=== PATIENT | female | born 1935 ===

== ENCOUNTER 2017-02-15 19:34 | Inpatient (IN) ==
[2017-02-16] MEDS ORDERED: POLYETHYL GLYCOL 3350 17gm PACKET PO PRN (00:34)
[2017-02-16] MEDS ORDERED: LUBIPROSTONE 8 MCG CAPSULE PO PRN (00:34)
[2017-02-16] MEDS ORDERED: LOPERAMIDE 2 MG CAPSULE PO PRN (00:34)
[2017-02-16] MEDS ORDERED: MAG-AL + SIM ORAL LIQUID 30ml PO PRN (00:34)
[2017-02-16] MEDS ORDERED: HALOPERIDOL 0.5 MG TABLET PO PRN (00:37)
[2017-02-16] MEDS ORDERED: HALOPERIDOL 5 MG/ML INJECTION IM PRN (00:37)
[2017-02-16] MEDS ORDERED: LORazepam 0.5 MG TABLET PO PRN (00:37)
[2017-02-16 02:15] VITALS: BMI 24.7
[2017-02-16] MEDS: BUMETANIDE 1 MG TABLET PO SCH (08:43)
[2017-02-16] MEDS: LEVOTHYROXINE 50 MCG TABLET PO SCH (08:43)
[2017-02-16] MEDS: CLOPIDOGREL 75 MG TABLET PO SCH (08:43)
[2017-02-16] MEDS: MAGNESIUM OXIDE 400 MG TABLET PO SCH ×5 (08:43→22:09)
[2017-02-16] MEDS: MIDODRINE 5 MG TABLET PO SCH ×2 (08:43→15:16)
[2017-02-16] MEDS: LETROZOLE 2.5 MG TABLET PO SCH (08:43)
[2017-02-16] MEDS: RANITIDINE 150 MG TABLET PO SCH ×2 (08:44→21:19)
[2017-02-16] MEDS: ASPIRIN *EC* 81 MG TABLET PO SCH (08:44)
[2017-02-16] MEDS: METFORMIN 500 MG TABLET PO SCH ×2 (08:44→17:42)
--- NOTE | 2017-02-16 09:42 | History & Physical Report ---
<NelsonTiffanie Oscar - Last Filed: 02/16/17 09:36> History of Present Illness Date: 02/16/17 Chief complaint: Agitation, Behavior changes "I am doing ok" HPI: Nury is a 72 yo WF who lives in [facility]. She is under the care of Dr. Kirit Burris in [place]. She was recently admitted at [facility] in December for PPM placement. Apparently, she experienced post-operative delirium, which was reportedly resolved upon dismissal. She became confused again on 02/11/17, and presented to [facility] in [place], where she was found to have a UTI. Despite significant pyuria, the urine culture was reportedly negative. Her confusion was attributed to UTI, and she was returned home with oral Cipro. She returned home with her daughter, and upon returning home, became agitated, cursing at family, left home and walked down the street. Family also reported that pt. was refusing meds, thought she was being poisoned. Daughter called Dr. Burris, who advised pt to return to the hospital. Daughter is unable to care for pt. due to ill spouse, and was unable to take her back home given elopement risk. Due to patient's fairly acute behavior changes, she met criteria for inpt. assessment and was admitted to [facility] for further eval and tx. Pt. is up in dining room. She is alert, pleasant. Reports feeling well, no pain. She can tell me she sees Dr. 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 Her legs are swollen- she reports "I am not sure what is going on. I don't think I've gained any weight." When asked if she has a history of HF, she states "Heavens, No!!" She is unable to provide other medical information. Chart is reviewed for collateral information. Family is not present during this exam. Review of Systems Review of systems: Limited due to confusion - Cardiovascular Vascular: Present: pedal edema - Respiratory Respiratory: Absent: cough, dyspnea - Gastrointestinal Gastrointestinal: Absent: abdominal pain - Musculoskeletal Musculoskeletal: Absent: back pain [facility] Patient Stated Medical History Dementia Yes Cardiac Arrhythmia Yes: Atrial fibrillation Coronary Artery Disease Yes Hypertension Yes Diabetes Mellitus Type 2 Yes Gastroesophageal Reflux Yes Disease Hx Urinary Tract Infection Yes: 02/11/17 Medical History Updates: Hypothyroidism. Orthostatic Hypotension. Hypokalemia Surgical History: PPM Family History: Unable to obtain due to mentation - Social History Smoking status: Never smoker Housing: house Household members: family Current occupational status: retired Medications Home Medications Medication Instructions Recorded Confirmed Type Aspirin *EC* [Ecotrin] 1 tab PO DAILY 02/15/17 02/16/17 History Bumetanide 2 mg PO DAILY 02/15/17 02/15/17 History Cholecalciferol [Vit. D-3] 1 tab PO DAILY 02/15/17 02/16/17 History Ciprofloxacin HCl [Cipro] 500 mg PO 02/15/17 02/15/17 History Clopidogrel Bisulfate [Clopidogrel] 75 mg PO DAILY 02/15/17 02/16/17 History Letrozole 2.5 mg PO DAILY 02/15/17 02/16/17 History Levothyroxine Sodium 50 mcg PO DAILY 02/15/17 02/16/17 History Loperamide HCl [Loperamide] 2 mg PO DAILY PRN 02/15/17 02/15/17 History Lubiprostone [Amitiza] 8 mcg PO PRN PRN 02/15/17 02/15/17 History Magnesium Oxide [Magnesium] 400 mg PO BID 02/15/17 02/16/17 History Metformin [Glucophage] 500 mg PO BIDWM 02/15/17 02/16/17 History Metoprolol Tartrate [Lopressor] 25 mg PO BIDWM 02/15/17 02/16/17 History Midodrine [Proamatine] 5 mg PO TID 02/15/17 02/16/17 History Oxycodone/APAP 5/325 [Percocet 1 tab PO HS 02/15/17 02/16/17 History 5/325] Potassium Chloride [Klor-Con 10] 10 meq PO BID 02/15/17 02/16/17 History raNITIdine HCl [Ranitidine HCl] 75 mg PO BID 02/15/17 02/16/17 History Mag-Al + Sim Oral Liq [Maalox Plus] 30 ml PO PRN PRN 02/16/17 02/16/17 History Polyethylene Glycol 3350 [Miralax] 17 gm PO PRN PRN 02/16/17 02/16/17 History Allergies Allergy/AdvReac Type Severity Reaction Status Date / Time No Known Allergies Allergy Verified 02/15/17 23:50 Exam Vital Signs: Temp Pulse Resp BP Pulse Ox 98 F 70 18 131/74 100 02/16/17 07:49 02/16/17 07:49 02/16/17 07:49 02/16/17 07:49 02/16/17 07:49 Height: 1.6 m Weight: 63.3 kg Body Mass Index: 24.7 Comments: EKG- 100% AV paced - Constitutional Present: no acute distress, well nourished, cooperative - Routine HEENT Exam Head: Present: normocephalic, atraumatic Eye: Present: EOMI, PERRL ENT: Present: mucous membranes moist - Routine Neck Exam Present: full ROM. Absent: JVD, carotid bruit, tenderness - Routine Chest/Breast/Axilla Exam Chest wall: Present: pacemaker - Routine Respiratory Exam Present: CTA bilaterally. Absent: accessory muscle use, dyspnea, decreased breath sounds, rales, respiratory distress, rhonchi, wheezes, crackles - Routine Cardiovascular Exam Present: RRR, S1, S2, no murmur. Absent: rubs - Routine Abdominal Exam Present: soft, normoactive bowel sounds, non distended, non tender. Absent: tenderness - Routine Extremities Exam Present: edema. Absent: cyanosis, clubbing, calf tenderness Comments: Bilateral 2+ LE edema, pitting - Routine Back/Spine/Pelvis Exam Back/Spine: Absent: muscle spasm - Routine Skin Exam Present: intact, dry, warm - Routine Neurological Exam Present: alert, moving all extremities - Routine Psychiatric Exam Present: cooperative. Absent: normal thought process, good insight, good judgment Results - Labs CBC & Chem 7: 02/16/17 08:07 02/16/17 08:07 Labs: AM labs WBC 4.7 HGB 10.3 HCT 31.5 PLT 206 INR 1.28 Na 137 K 3.3 Ch 107 BUN 12 SC 0.91 Glu 140 Ca 7.8 UDS negative. LFTs normal Assessment and Plan (1) Cognitive and behavioral changes Current visit: Yes Status: Acute (2) UTI (urinary tract infection), bacterial Current visit: Yes Status: Acute (3) HTN (hypertension) Current visit: Yes Status: Chronic (4) CAD (coronary artery disease) Current visit: Yes Status: Chronic (5) Chronic edema Current visit: Yes Status: Chronic (6) Hypokalemia Current visit: Yes Status: Acute (7) DM2 (diabetes mellitus, type 2) Current visit: Yes Status: Chronic (8) Hypothyroid Current visit: Yes Status: Chronic (9) Atrial fibrillation Current visit: Yes Status: Chronic 02/16/17 09:54 s/p PPM December 2016- [facility]. Request records for Echo, Cardiac records (None at [facility]) (10) Leukopenia Current visit: Yes Status: Acute (11) Normocytic normochromic anemia Current visit: Yes Status: Chronic (12) IBS (irritable bowel syndrome) Current visit: Yes Status: Acute DVT Prophylaxis: other (N/a) GI Prophylaxis: Rantidine Resuscitation Status: Full Code Assessment and Plan: 02/16/17- PCP: Dr. Burris *Cognitive/Behavioral Changes- Per attending. Will stop Cipro, as this can worsen delirium in the elderly. Ok for unit activities. Recent anesthesia for PPM. *UTI- Significant pyuria on recent UA. Recheck UA now. Stop Cipro and reassess once urine is back. *HTN- Continue metoprolol, Bumex. She is on Midodrine- suspect some history of orthostasis. Monitor BP. *Peripheral edema- Given Bumex dosing, suspect HF. Try and get echo from [facility]. *Hypokalemia- Repeat labs now. May need to increase KCL dosing. *Leukopenia- She is on Femara. No hx of cancer is on record. Will need to clarify with family. *Anemia- normocytic. Assess B12, Folate. *DM2-Continue metformin. A1c is OK. Monitor accuchecks. *Hypothyroid- TSH high normal. We could potentially increase dose a bit. Monitor progress for now. *Atrial Fib- s/p PPM Rate control. No anticoagulation due to fall risk. *Full Code Thank you for the consult. Will follow with you. Sepsis Assessment - Evaluation Sepsis screening result: No Definite Risk Hospital Course Summary Disclaimer: The visit summary below is not to be considered part of the above Progress Note. Hospital Course: 02/16/17 10:03 *Cognitive/Behavioral Changes- Per attending. Will stop Cipro, as this can worsen delirium in the elderly. Ok for unit activities. Recent anesthesia for PPM. *UTI- Significant pyuria on recent UA. Recheck UA now. Stop Cipro and reassess once urine is back. *HTN- Continue metoprolol, Bumex. She is on Midodrine- suspect some history of orthostasis. Monitor BP. *Peripheral edema- Given Bumex dosing, suspect HF. Try and get echo from [facility]. *Hypokalemia- Repeat labs now. May need to increase KCL dosing. *Leukopenia- She is on Femara. No hx of cancer is on record. Will need to clarify with family. *Anemia- normocytic. Assess B12, Folate. *DM2-Continue metformin. A1c is OK. Monitor accuchecks. *Hypothyroid- TSH high normal. We could potentially increase dose a bit. Monitor progress for now. *Atrial Fib- s/p PPM Rate control. No anticoagulation due to fall risk. *Full Code <Artur Wade - Last Filed: 02/16/17 19:04> History of Present Illness Date: 02/16/17 [facility] Patient Stated Medical History Dementia Yes Cardiac Arrhythmia Yes: Atrial fibrillation Coronary Artery Disease Yes Hypertension Yes Diabetes Mellitus Type 2 Yes Gastroesophageal Reflux Yes Disease Hx Urinary Tract Infection Yes: 02/11/17 Exam Vital Signs: Temp Pulse Resp BP Pulse Ox 97.2 F 68 18 141/73 H 96 02/16/17 15:00 02/16/17 15:00 02/16/17 15:00 02/16/17 15:00 02/16/17 15:00 Height: 5 ft 3 in Weight: 63.3 kg Results - Labs CBC & Chem 7: 02/16/17 08:07 02/16/17 10:52 Assessment and Plan (1) Cognitive and behavioral changes Current visit: Yes Status: Acute (2) UTI (urinary tract infection), bacterial Current visit: Yes Status: Acute (3) HTN (hypertension) Current visit: Yes Status: Chronic (4) CAD (coronary artery disease) Current visit: Yes Status: Chronic (5) Chronic edema Current visit: Yes Status: Chronic (6) Hypokalemia Current visit: Yes Status: Acute (7) DM2 (diabetes mellitus, type 2) Current visit: Yes Status: Chronic (8) Hypothyroid Current visit: Yes Status: Chronic (9) Atrial fibrillation Current visit: Yes Status: Chronic (10) Leukopenia Current visit: Yes Status: Acute (11) Normocytic normochromic anemia Current visit: Yes Status: Chronic (12) IBS (irritable bowel syndrome) Current visit: Yes Status: Acute Assessment and Plan: Pt was seen and examined at 18:30. She states she is feeling well and appears to be puzzled by lower extremity edema. She has no complaints. VSS [place]/AT [place] Chest clear Irregular Abd -soft Ext - minimally pititng edema Gait - not tested. Grossly non focal. Assesment - This pt has been admitted with cognitive decline of recent onset. We need to obtain a recent brain CT or do it here. 1) ? of UTI - Cipro held - UA will be done again. 2) HTN - stable continue current meds. 3) Peripheral edema/HTN/Low K - Could be due to Midodrine - will hold and observe orthostasis. - Low K will improve with correction of Mg. 4) CHF ? pt appears to be very comfortable. - Atrial fibrillation with controlled rate. - No Anticoagulation due to fall risk. 5) ? H.O breast cancer ? On Femara. 6) Anemia - Await B12 levels. 7) Type II DM - Continue Metformin. 8) Hypothyoridism - Check FT4, T3. Hospital Course Summary Disclaimer: The visit summary below is not to be considered part of the above Progress Note.
[2017-02-16] MEDS ORDERED: CIPROFLOXACIN 500 MG TABLET PO SCH (10:00)
[2017-02-16] MEDS: CEFPODOXIME 200mg TABLET PO SCH ×2 (12:08→17:43)
--- NOTE | 2017-02-16 12:54 | 24 Hour Neuropsychiatic Eval ---
Date of Admission: 02/15/17 23:25 Chief complaint: "I retired" History of Present Illness: 81 y/o CF sent from [place] for increasing confusion and self care failure. Pt reportedly has a hx of dementia and recently had a UTI. THis was treated but her confusion persisted. Recently she has been refusing meds at home and has been wandering away from the home. Due to these issues her daughter did not feel she could keep her safe. At the hospital in [place] the staff reported the pt was confused and paranoid at times. On face to face the pt is pleasant but confused. She knows she is in the hospital but is not sure why. SHe is only oriented to self and believes she is in [place] and it is September. She denies any pain and voices no concerns at this time. [facility] Patient Stated Medical History Dementia Yes Cardiac Arrhythmia Yes: Atrial fibrillation Coronary Artery Disease Yes Hypertension Yes Diabetes Mellitus Type 2 Yes Gastroesophageal Reflux Yes Disease Hx Urinary Tract Infection Yes: 02/11/17 Medical History Updates: Hypothyroidism. Orthostatic Hypotension. Hypokalemia Surgical History: PPM - Social History Smoking status: Never smoker Review of Systems ROS unobtainable: due to mental status - Cardiovascular Vascular: Present: pedal edema - Respiratory Respiratory: Absent: cough, dyspnea - Gastrointestinal Gastrointestinal: Absent: abdominal pain - Musculoskeletal Musculoskeletal: Absent: back pain Mental Status Exam Vitals: Last Vital Signs Temp 98 F 02/16/17 07:49 Pulse 70 02/16/17 07:49 Resp 18 02/16/17 07:49 BP 131/74 02/16/17 07:49 Pulse Ox 100 02/16/17 07:49 Height: 1.6 m Weight: 63.3 kg - Mental Status Exam Muscle Strength/Tone: Normal Dressing: Casual Grooming: Good Attitude: Cooperative Motor Activity: Retardation Eye Contact: Fair Speech: Slowed Volume: Soft Rhythm: Appropriate Rhythm Orientation: Oriented to person Mood: Neutral Affect: Anxious Rate of Thoughts: Delayed Thought Organization: [place] Associations: Flight of Ideas Abstract Reasoning: Poor abstract reasoning Thought Content: Delusions Perception/Psychotic: Hx psychosis, not current Language: Naming Impaired Memory: Poor-immediate Suicidal Ideation: None Homicidal Ideation: None Insight: Poor Judgement: Poor - Laboratory Result Diagrams: 02/16/17 08:07 02/16/17 10:52 Laboratory Results - last 24 hr 02/16/17 02/16/17 02/16/17 05:51 08:07 08:07 WBC 11.3 H RBC 3.62 L Hgb 11.3 L Hct 34.9 L MCV 96.4 MCH 31.2 MCHC 32.4 RDW Std Deviation 45.2 Plt Count 356 MPV 10.6 Immature Gran % (Auto) Not performed Neut % (Auto) Not performed Lymph % (Auto) Not performed Frio % (Auto) Not performed Eos % (Auto) Not performed Baso % (Auto) Not performed Neut # Not performed Lymph # Not performed Frio # Not performed Baso # Not performed Abs Immat Gran (auto) Not performed Neutrophils % (Manual) 49.0 Band Neutrophils % 6.0 Lymphocytes % (Manual) 38.0 Monocytes % (Manual) 5.0 Metamyelocytes % 2.0 H Neutrophils # (Manual) 5.5 Band Neutrophils # 0.7 Lymphocytes # (Manual) 4.3 Monocytes # (Manual) 0.6 Metamyelocytes # 0.2 RBC Morph Comment Normal Turbidity Sodium Potassium Chloride Carbon Dioxide Anion Gap BUN Creatinine GFR Calculation BUN/Creatinine Ratio Glucose Glucometer 111 Hemoglobin A1c 6.6 Calculated Osmolality Calcium Magnesium Total Bilirubin Icterus Index AST ALT Alkaline Phosphatase Total Protein Albumin Globulin Albumin/Globulin Ratio Prealbumin 15.7 L TSH 4.60 Specimen Hemolysis 02/16/17 10:52 WBC RBC Hgb Hct MCV MCH MCHC RDW Std Deviation Plt Count MPV Immature Gran % (Auto) Neut % (Auto) Lymph % (Auto) Frio % (Auto) Eos % (Auto) Baso % (Auto) Neut # Lymph # Frio # Baso # Abs Immat Gran (auto) Neutrophils % (Manual) Band Neutrophils % Lymphocytes % (Manual) Monocytes % (Manual) Metamyelocytes % Neutrophils # (Manual) Band Neutrophils # Lymphocytes # (Manual) Monocytes # (Manual) Metamyelocytes # RBC Morph Comment Turbidity < 20 Sodium 145 H Potassium 4.0 Chloride 108 H Carbon Dioxide 23 Anion Gap 14 BUN 10.0 Creatinine 1.1 GFR Calculation 65 BUN/Creatinine Ratio 9 Glucose 117 H Glucometer Hemoglobin A1c Calculated Osmolality 279 Calcium 9.3 Magnesium 1.3 L Total Bilirubin 0.50 Icterus Index < 2 AST 19 ALT 33 Alkaline Phosphatase 71 Total Protein 6.3 Albumin 4.0 Globulin 2.3 L Albumin/Globulin Ratio 1.7 Prealbumin TSH Specimen Hemolysis < 15 Assessment and Plan (1) Delirium Problem details: Due to UTI Current visit: Yes Status: Acute (2) Major neurocognitive disorder Problem details: with behavioral disturbance Current visit: Yes Status: Acute Will restart home meds. Medical team to follow
[2017-02-16] MEDS ORDERED: PHENAZOPYRIDINE 95 MG TABLET PO PRN (14:28)
[2017-02-16] MEDS ORDERED: LORazepam INTENSOL 1mg/0.5ml ORAL LIQUID PO PRN ×2 (16:53→16:57)
[2017-02-16] MEDS ORDERED: MAGNESIUM SULFATE IV ONE (18:02)
[2017-02-16] MEDS ORDERED: NS IV ONE (18:02)
[2017-02-16] MEDS: Oxycodone/Acetaminophen 5/325 1 TAB PO SCH (21:28)
[2017-02-17] MEDS: LEVOTHYROXINE 50 MCG TABLET PO SCH (05:53)
--- NOTE | 2017-02-17 08:43 | CT Scan Report ---
Indication: Acute mental status change PROCEDURE: CT head/brain wo con: Encounter: Initial Comparison: None Technique: Axial CT images through the head were performed without contrast. Iterative Reconstruction dose reducing technique was utilized. FINDINGS: Moderate generalized atrophy. Chronic appearing bilateral cerebellar infarcts. The ventricles are of normal size, shape, and contour for the patient's age. There are scattered areas of low attenuation in the white matter which most likely represent changes from chronic microvascular ischemia. The brainstem, cerebellum, and cerebral hemispheres otherwise have a normal morphology and CT attenuation. There is no evidence of midline displacement. No hemorrhage, signs of acute territorial stroke, mass effect, mass lesions, or edema is evident. The visualized portions of the skull base, midface, and calvarium demonstrate no abnormality. The paranasal sinuses are well aerated and free of significant disease. The tympanic and mastoid cavities appear normal. IMPRESSION: No acute intracranial abnormality or hemorrhage. .
--- NOTE | 2017-02-17 08:44 | XRay Report ---
INDICATION: Acute mental status change PROCEDURE: CHEST 2-VIEWS UPRIGHT (PA & LAT) Encounter: Initial COMPARISON: None FINDINGS: The lungs are clear without evidence of focal abnormal airspace opacity. Slight blunting of the right costophrenic angle is felt to be most likely due to pleural thickening rather than a trace effusion. Cardiac pacemaker is present. Intracardiac valve or baffle. Cholecystectomy clips. The heart size, mediastinal contours and pulmonary vascularity are within normal limits. There is no significant skeletal abnormality. IMPRESSION: No acute cardiopulmonary disease. .
[2017-02-17] MEDS: MAGNESIUM OXIDE 400 MG TABLET PO SCH ×3 (09:16→20:03)
[2017-02-17] MEDS: LETROZOLE 2.5 MG TABLET PO SCH (09:16)
[2017-02-17] MEDS: ASPIRIN *EC* 81 MG TABLET PO SCH (09:16)
[2017-02-17] MEDS: BUMETANIDE 1 MG TABLET PO SCH (09:16)
[2017-02-17] MEDS: RANITIDINE 150 MG TABLET PO SCH ×2 (09:17→20:03)
[2017-02-17] MEDS: CLOPIDOGREL 75 MG TABLET PO SCH (09:17)
--- NOTE | 2017-02-17 09:27 | Progress Note ---
Subjective: "Bev" (her nickname her whole life) was doing well this morning. Her only comment was her leg swelling, but she can't remember how long it's been present. She denies any hx of CHF or heart problems (though records indicate otherwise); denies SOA at rest or with exertion; no PND; no chest pain; no diaphoresis or dizziness. She denies abdominal pain or GI complaints. She talks fondly of her dog, "Joy" and is looking forward to when her daughter brings Joy to visit this morning. Objective Vital signs: Temp Pulse Resp BP Pulse Ox 97.7 F 69 16 106/57 98 02/17/17 07:00 02/17/17 07:00 02/17/17 07:00 02/17/17 07:00 02/16/17 23:00 Body Mass Index: 24.7 - Constitutional Present: no acute distress, well nourished, cooperative - Routine HEENT Exam ENT: Present: oropharynx clear. Absent: dentition normal - Routine Respiratory Exam Present: CTA bilaterally - Routine Cardiovascular Exam Present: RRR, S1, S2 - Routine Abdominal Exam Present: soft, normoactive bowel sounds, non distended, non tender - Routine Extremities Exam Present: edema (2+ b/l), normal capillary refill - Routine Skin Exam Present: intact, dry, warm - Routine Neurological Exam Present: alert - Routine Psychiatric Exam Present: normal affect, normal thought process Results - Labs CBC & Chem 7: 02/17/17 06:04 02/17/17 06:04 Assessment and Plan (1) Cognitive and behavioral changes Current visit: Yes Status: Acute (2) UTI (urinary tract infection), bacterial Current visit: Yes Status: Acute (3) HTN (hypertension) Current visit: Yes Status: Chronic (4) CAD (coronary artery disease) Current visit: Yes Status: Chronic (5) Chronic edema Current visit: Yes Status: Chronic (6) Hypokalemia Current visit: Yes Status: Acute (7) DM2 (diabetes mellitus, type 2) Current visit: Yes Status: Chronic (8) Hypothyroid Current visit: Yes Status: Chronic (9) Atrial fibrillation Current visit: Yes Status: Chronic 02/16/17 09:54 s/p PPM December 2016- [facility]. Request records for Echo, Cardiac records (None at [facility]) (10) Leukopenia Current visit: Yes Status: Acute (11) Normocytic normochromic anemia Current visit: Yes Status: Chronic (12) IBS (irritable bowel syndrome) Current visit: Yes Status: Acute Assessment and Plan: Hypomagnesemia -improving; up to 1.5 -recheck in am -K stable at 3.9 UTI -r/o; UA neg. -Cipro dc'd DM2 -well controlled and normal A1c -Metformin dc'd -continue to monitor BG to assess trends since metformin was dc'd Suspect CHF -records being requested from [facility] -continue Bumex & metoprolol -EKG reviewed - paced rhythm -elevate legs when at rest ?Orthostasis -midodrine on hold -monitor orthostatics BID Psych -head CT shows moderate atrophy and chronic b/l cerebellar infarcts -observe for gait instability -RPR, lippid panel, T3, T4 pending -B12 523 Sepsis Assessment - Evaluation Sepsis screening result: No Definite Risk Hospital Course Summary Disclaimer: The visit summary below is not to be considered part of the above Progress Note. Hospital Course: 02/16/17 10:03 *Cognitive/Behavioral Changes- Per attending. Will stop Cipro, as this can worsen delirium in the elderly. Ok for unit activities. Recent anesthesia for PPM. *UTI- Significant pyuria on recent UA. Recheck UA now. Stop Cipro and reassess once urine is back. *HTN- Continue metoprolol, Bumex. She is on Midodrine- suspect some history of orthostasis. Monitor BP. *Peripheral edema- Given Bumex dosing, suspect HF. Try and get echo from [facility]. *Hypokalemia- Repeat labs now. May need to increase KCL dosing. *Leukopenia- She is on Femara. No hx of cancer is on record. Will need to clarify with family. *Anemia- normocytic. Assess B12, Folate. *DM2-Continue metformin. A1c is OK. Monitor accuchecks. *Hypothyroid- TSH high normal. We could potentially increase dose a bit. Monitor progress for now. *Atrial Fib- s/p PPM Rate control. No anticoagulation due to fall risk. *Full Code 02/17/17 09:41 Hypomagnesemia -improving; up to 1.5 -recheck in am -K stable at 3.9 UTI -r/o; UA neg. -Cipro dc'd DM2 -well controlled and normal A1c -Metformin dc'd -continue to monitor BG to assess trends since metformin was dc'd Suspect CHF -records being requested from [facility] -continue Bumex & metoprolol -EKG reviewed - paced rhythm -elevate legs when at rest ?Orthostasis -midodrine on hold -monitor orthostatics BID Psych -head CT shows moderate atrophy and chronic b/l cerebellar infarcts -observe for gait instability -RPR, lippid panel, T3, T4 pending -B12 523
--- NOTE | 2017-02-17 10:59 | Neuropsych Progress Note ---
[facility] Subjective Date: 02/17/17 - Sujective/Severity of Illness Medications: Al Hydroxide/Mg Hydroxide (Maalox Plus) 30 ml PO PRN PRN PRN Reason: Indigestion Aspirin (Ecotrin) 81 mg PO DAILY [facility] Last Admin: 02/17/17 09:16 Dose: 81 mg Bumetanide (Bumex) 2 mg PO DAILY [facility] Last Admin: 02/17/17 09:16 Dose: 2 mg Cholecalciferol (Vit. D-3) 1,000 unit PO DAILY [facility] Last Admin: 02/17/17 09:18 Dose: 1,000 unit Clopidogrel Bisulfate (Plavix) 75 mg PO DAILY [facility] Last Admin: 02/17/17 09:17 Dose: 75 mg Haloperidol (Haldol) 0.5 mg PO Q6H PRN PRN Reason: Extreme agitation Haloperidol Lactate (Haldol) 0.5 mg IM Q6H PRN PRN Reason: Extreme agitation Letrozole (Femara) 2.5 mg PO DAILY [facility] Last Admin: 02/17/17 09:16 Dose: 2.5 mg Levothyroxine Sodium (Synthroid) 50 mcg PO ACB [facility] Last Admin: 02/17/17 05:53 Dose: 50 mcg Loperamide HCl (Imodium) 2 mg PO DAILY PRN PRN Reason: Unspecified Lorazepam (Ativan Inj) 0.5 mg IM Q6H PRN PRN Reason: Extreme agitation Lorazepam (Ativan) 0.5 mg PO Q6H PRN PRN Reason: Extreme agitation Lorazepam (Ativan Intensol) 0.5 mg PO Q6H PRN Last Admin: 02/16/17 17:13 Dose: 0.5 mg Lubiprostone (Amitiza) 8 mcg PO PRN PRN PRN Reason: Unspecified Magnesium Oxide (Magox) 400 mg PO TID [facility] Last Admin: 02/17/17 09:16 Dose: 400 mg Metformin HCl (Glucophage) 500 mg PO BIDWM [facility] Last Admin: 02/16/17 17:42 Dose: 500 mg Metoprolol Tartrate (Lopressor) 25 mg PO BIDWM [facility] Last Admin: 02/17/17 09:16 Dose: 25 mg Oxycodone/Acetaminophen (Percocet 5/325) 1 tab PO [facility] Last Admin: 02/16/17 21:28 Dose: 1 tab Polyethylene Glycol (Miralax) 17 gm PO PRN PRN PRN Reason: Constipation Potassium Chloride (K-Dur) 10 meq PO BIDWM [facility] Last Admin: 02/17/17 09:15 Dose: 10 meq Ranitidine HCl (Zantac) 75 mg PO BID [facility] Last Admin: 02/17/17 09:17 Dose: 75 mg Subjective: Patient is a 81-year-old CF who presented from home with increase confusion and agitation. She was said to have had a UTI which was treated with Ciprofloxacin. Since admission the later has been help and a repeat UA on admission showed 2-3 WBC and + 1 leukocyte esterase . Patient was seen to be alert and oriented to place and person, but nor to time. She would like to go back home as soon as possible to be with her dog. She describes her mood as "okay" and denies any suicide or homicide ideation. Start Time: 09:10 Stop Time: 09:30 Mental Status Exam Vitals: Last Vital Signs Temp 97.7 F 02/17/17 07:00 Pulse 69 02/17/17 07:00 Resp 16 02/17/17 07:00 BP 106/57 02/17/17 07:00 Pulse Ox 98 02/16/17 23:00 Height: 1.6 m Weight: 63.3 kg - Mental Status Exam Muscle Strength/Tone: Normal Dressing: Casual Grooming: Good Attitude: Cooperative Motor Activity: Retardation Eye Contact: Good Speech: Normal Volume: Soft Rhythm: Appropriate Rhythm, Perseveration (about going home) Orientation: Disoriented to time, Oriented to person, Oriented to place (knows that she is in a "health place") Mood: Other ("okay") Affect: Anxious Rate of Thoughts: Delayed Thought Organization: [place] Associations: Illogical Abstract Reasoning: Poor abstract reasoning Thought Content: Delusions Perception/Psychotic: Hx psychosis, 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 Language: Naming Impaired Memory: Poor-immediate Suicidal Ideation: None Homicidal Ideation: None Insight: Poor Judgement: Poor - Laboratory Result Diagrams: 02/17/17 06:04 02/17/17 06:04 Laboratory Results - last 24 hr 02/16/17 02/16/17 02/16/17 08:07 10:52 13:20 WBC RBC Hgb Hct MCV MCH MCHC RDW Std Deviation Plt Count MPV Immature Gran % (Auto) Neut % (Auto) Lymph % (Auto) Angelina % (Auto) Eos % (Auto) Baso % (Auto) Neut # Lymph # Angelina # Eos # Baso # Abs Immat Gran (auto) Turbidity < 20 Sodium 145 H Potassium 4.0 Chloride 108 H Carbon Dioxide 23 Anion Gap 14 BUN 10.0 Creatinine 1.1 GFR Calculation 65 BUN/Creatinine Ratio 9 Glucose 117 H Glucometer Calculated Osmolality 279 Calcium 9.3 Magnesium 1.3 L Total Bilirubin 0.50 Icterus Index < 2 AST 19 ALT 33 Alkaline Phosphatase 71 Total Protein 6.3 Albumin 4.0 Globulin 2.3 L Albumin/Globulin Ratio 1.7 Vitamin B12 523 Folate 11.8 Specimen Hemolysis < 15 Ur Collection Type Not provided Urine Color Yellow Urine Clarity Clear Urine pH 5.0 Ur Specific [place] <=1.005 L Urine Protein Negative Urine Glucose (UA) Negative Urine Ketones Negative Urine Occult Blood Negative Urine Nitrate Negative Urine Bilirubin Negative Urine Urobilinogen 0.2 Ur Leukocyte Esterase 1+ A Urine RBC 0-1 Urine WBC 3-5 Ur Squamous Epith Cells 0-5 Urine Bacteria Trace H Urine Mucus Present Ur Culture Indicated? Cult not indicated 02/16/17 02/17/17 02/17/17 20:55 05:45 06:04 WBC 8.9 RBC 3.71 L Hgb 11.5 L Hct 35.5 L MCV 95.7 MCH 31.0 MCHC 32.4 RDW Std Deviation 45.1 Plt Count 361 MPV 10.1 Immature Gran % (Auto) 2.4 H Neut % (Auto) 47.6 Lymph % (Auto) 38.3 Angelina % (Auto) 9.9 H Eos % (Auto) 1.5 Baso % (Auto) 0.3 Neut # 4.3 Lymph # 3.4 Angelina # 0.9 H Eos # 0.1 Baso # 0.0 Abs Immat Gran (auto) 0.21 H Turbidity Sodium Potassium Chloride Carbon Dioxide Anion Gap BUN Creatinine GFR Calculation BUN/Creatinine Ratio Glucose Glucometer 151 101 Calculated Osmolality Calcium Magnesium Total Bilirubin Icterus Index AST ALT Alkaline Phosphatase Total Protein Albumin Globulin Albumin/Globulin Ratio Vitamin B12 Folate Specimen Hemolysis Ur Collection Type Urine Color Urine Clarity Urine pH Ur Specific [place] Urine Protein Urine Glucose (UA) Urine Ketones Urine Occult Blood Urine Nitrate Urine Bilirubin Urine Urobilinogen Ur Leukocyte Esterase Urine RBC Urine WBC Ur Squamous Epith Cells Urine Bacteria Urine Mucus Ur Culture Indicated? 02/17/17 06:04 WBC RBC Hgb Hct MCV MCH MCHC RDW Std Deviation Plt Count MPV Immature Gran % (Auto) Neut % (Auto) Lymph % (Auto) Angelina % (Auto) Eos % (Auto) Baso % (Auto) Neut # Lymph # Angelina # Eos # Baso # Abs Immat Gran (auto) Turbidity < 20 Sodium 144 Potassium 3.9 Chloride 103 Carbon Dioxide 28 Anion Gap 13 BUN 15.0 D Creatinine 1.2 GFR Calculation 58 BUN/Creatinine Ratio 13 Glucose 91 Glucometer Calculated Osmolality 278 Calcium 9.4 Magnesium 1.5 L Total Bilirubin 0.50 Icterus Index < 2 AST 16 L ALT 27 Alkaline Phosphatase 68 Total Protein 6.3 Albumin 3.9 Globulin 2.4 Albumin/Globulin Ratio 1.6 Vitamin B12 Folate Specimen Hemolysis < 15 Ur Collection Type Urine Color Urine Clarity Urine pH Ur Specific [place] Urine Protein Urine Glucose (UA) Urine Ketones Urine Occult Blood Urine Nitrate Urine Bilirubin Urine Urobilinogen Ur Leukocyte Esterase Urine RBC Urine WBC Ur Squamous Epith Cells Urine Bacteria Urine Mucus Ur Culture Indicated? Assessment and Plan (1) Major neurocognitive disorder Problem details: with behavioral disturbance Current visit: Yes Status: Acute (2) Delirium Problem details: Due to UTI Current visit: Yes Status: Acute (3) UTI (urinary tract infection), bacterial Current visit: Yes Status: Acute (4) Atrial fibrillation Current visit: Yes Status: Chronic (5) CAD (coronary artery disease) Current visit: Yes Status: Chronic (6) DM2 (diabetes mellitus, type 2) Current visit: Yes Status: Chronic (7) HTN (hypertension) Current visit: Yes Status: Chronic (8) Hypothyroid Current visit: Yes Status: Chronic Cont current management and observe patient in the unit. Hospital Course Summary Disclaimer: The visit summary below is not to be considered part of the above Progress Note. Hospital Course: 02/16/17 10:03 *Cognitive/Behavioral Changes- Per attending. Will stop Cipro, as this can worsen delirium in the elderly. Ok for unit activities. Recent anesthesia for PPM. *UTI- Significant pyuria on recent UA. Recheck UA now. Stop Cipro and reassess once urine is back. *HTN- Continue metoprolol, Bumex. She is on Midodrine- suspect some history of orthostasis. Monitor BP. *Peripheral edema- Given Bumex dosing, suspect HF. Try and get echo from [facility]. *Hypokalemia- Repeat labs now. May need to increase KCL dosing. *Leukopenia- She is on Femara. No hx of cancer is on record. Will need to clarify with family. *Anemia- normocytic. Assess B12, Folate. *DM2-Continue metformin. A1c is OK. Monitor accuchecks. *Hypothyroid- TSH high normal. We could potentially increase dose a bit. Monitor progress for now. *Atrial Fib- s/p PPM Rate control. No anticoagulation due to fall risk. *Full Code 02/17/17 09:41 Hypomagnesemia -improving; up to 1.5 -recheck in am -K stable at 3.9 UTI -r/o; UA neg. -Cipro dc'd DM2 -well controlled and normal A1c -Metformin dc'd -continue to monitor BG to assess trends since metformin was dc'd Suspect CHF -records being requested from [facility] -continue Bumex & metoprolol -EKG reviewed - paced rhythm -elevate legs when at rest ?Orthostasis -midodrine on hold -monitor orthostatics BID Psych -head CT shows moderate atrophy and chronic b/l cerebellar infarcts -observe for gait instability -RPR, lippid panel, T3, T4 pending -B12 523
[2017-02-17] MEDS: Oxycodone/Acetaminophen 5/325 1 TAB PO SCH ×2 (20:04→22:02)
[2017-02-18] MEDS: LEVOTHYROXINE 50 MCG TABLET PO SCH (06:34)
[2017-02-18] MEDS: RANITIDINE 150 MG TABLET PO SCH ×2 (09:49→20:35)
[2017-02-18] MEDS: ASPIRIN *EC* 81 MG TABLET PO SCH (09:50)
[2017-02-18] MEDS: LETROZOLE 2.5 MG TABLET PO SCH (09:50)
[2017-02-18] MEDS: MAGNESIUM OXIDE 400 MG TABLET PO SCH (09:50)
[2017-02-18] MEDS: CLOPIDOGREL 75 MG TABLET PO SCH (09:50)
[2017-02-18] MEDS: BUMETANIDE 1 MG TABLET PO SCH (09:50)
[2017-02-18] MEDS: MIDODRINE 5 MG TABLET PO SCH ×3 (11:50→20:35)
[2017-02-18] MEDS: INSULIN ASPART 100unit/ml INJECTION SQ PRN (12:22)
[2017-02-18] MEDS: METFORMIN 500 MG TABLET PO SCH (16:49)
--- NOTE | 2017-02-18 18:29 | Neuropsych Progress Note ---
[facility] Subjective Date: 02/18/17 - Sujective/Severity of Illness Medications: Al Hydroxide/Mg Hydroxide (Maalox Plus) 30 ml PO PRN PRN PRN Reason: Indigestion Aspirin (Ecotrin) 81 mg PO DAILY [facility] Last Admin: 02/18/17 09:50 Dose: 81 mg Bumetanide (Bumex) 2 mg PO DAILY [facility] Last Admin: 02/18/17 09:50 Dose: Not Given Cholecalciferol (Vit. D-3) 1,000 unit PO DAILY [facility] Last Admin: 02/18/17 09:50 Dose: 1,000 unit Clopidogrel Bisulfate (Plavix) 75 mg PO DAILY [facility] Last Admin: 02/18/17 09:50 Dose: 75 mg Haloperidol (Haldol) 0.5 mg PO Q6H PRN PRN Reason: Extreme agitation Haloperidol Lactate (Haldol) 0.5 mg IM Q6H PRN PRN Reason: Extreme agitation Insulin Aspart (Novolog) 0 unit SQ SS PRN; Protocol PRN Reason: Hyperglycemia Last Admin: 02/18/17 12:22 Dose: 2 unit Letrozole (Femara) 2.5 mg PO DAILY [facility] Last Admin: 02/18/17 09:50 Dose: 2.5 mg Levothyroxine Sodium (Synthroid) 50 mcg PO ACB [facility] Last Admin: 02/18/17 06:34 Dose: 50 mcg Loperamide HCl (Imodium) 2 mg PO DAILY PRN PRN Reason: DIARRHEA, LOOSE STOOLS Lorazepam (Ativan Inj) 0.5 mg IM Q6H PRN PRN Reason: Extreme agitation Lorazepam (Ativan) 0.5 mg PO Q6H PRN PRN Reason: Extreme agitation Lorazepam (Ativan Intensol) 0.5 mg PO Q6H PRN Last Admin: 02/16/17 17:13 Dose: 0.5 mg Lubiprostone (Amitiza) 8 mcg PO PRN PRN PRN Reason: FOR IBS with CONSTIPATION Metformin HCl (Glucophage) 500 mg PO BIDWM [facility] Last Admin: 02/18/17 16:49 Dose: 500 mg Metoprolol Tartrate (Lopressor) 25 mg PO BIDWM [facility] Last Admin: 02/18/17 16:50 Dose: Not Given Midodrine (Proamatine) 5 mg PO TID [facility] Last Admin: 02/18/17 16:49 Dose: 5 mg Oxycodone/Acetaminophen (Percocet 5/325) 1 tab PO HS [facility] Last Admin: 02/17/17 22:02 Dose: Not Given Polyethylene Glycol (Miralax) 17 gm PO PRN PRN PRN Reason: Constipation Potassium Chloride (K-Dur) 10 meq PO BIDWM [facility] Last Admin: 02/18/17 16:49 Dose: 10 meq Ranitidine HCl (Zantac) 75 mg PO BID [facility] Last Admin: 02/18/17 09:49 Dose: 75 mg Subjective: Patient is a 81-year-old CF, who presented from home with increase confusion and agitation. She was said to have had a UTI which was treated with Ciprofloxacin. Since admission the later has been held and a repeat UA on admission showed 2-3 WBC and + 1 leukocyte esterase . Patient was seen today to be alert, but disoriented to time, place and only oriented to person. She appears to be quite concrete in her reasoning and has been paranoid especially towards her family. Spoke with patient's daughter Ekta who is also her DPOA and she reports that the symptoms of confusion began after the UTI and patient has had periods of lucidity, but often becomes confused easily. There is no prior history of memory impairment. Discussed starting Risperidone for patient and daughter gave verbal consent after understanding the side effects. Reviewed patient's EKG which shows a Qtc of 450ms. Sleep:11 hours Start Time: 14:00 Stop Time: 14:20 Mental Status Exam Vitals: Last Vital Signs Temp 97.4 F 02/18/17 15:58 Pulse 84 02/18/17 16:00 Resp 16 02/18/17 15:58 BP 109/53 02/18/17 16:00 Pulse Ox 98 02/18/17 15:58 Height: 1.6 m Weight: 63.3 kg - Mental Status Exam Muscle Strength/Tone: Normal Dressing: Casual Grooming: Good Attitude: Cooperative Motor Activity: Retardation Eye Contact: Good Speech: Normal Volume: Soft Rhythm: Appropriate Rhythm, Perseveration (about going home) Orientation: Disoriented to time, Disoriented to place, Oriented to person Mood: Other ("okay") Affect: Anxious Rate of Thoughts: Delayed Thought Organization: [place] Associations: Illogical Abstract Reasoning: Poor abstract reasoning Thought Content: Delusions Perception/Psychotic: Hx psychosis, 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 Language: Naming Impaired Memory: Poor-immediate Suicidal Ideation: None Homicidal Ideation: None Insight: Poor Judgement: Poor - Laboratory Result Diagrams: 02/17/17 06:04 02/17/17 06:04 Laboratory Results - last 24 hr 02/16/17 02/16/17 02/17/17 08:07 08:07 20:01 Glucometer 182 Magnesium Triglycerides 151 Cholesterol 159 LDL Cholesterol, Calc 79.8 VLDL Cholesterol 30.2 H HDL Cholesterol 49 Cholesterol/HDL Ratio 3.2 RPR Non-reactive 02/18/17 02/18/17 02/18/17 05:03 05:06 11:31 Glucometer 149 213 Magnesium 1.8 D Triglycerides Cholesterol LDL Cholesterol, Calc VLDL Cholesterol HDL Cholesterol Cholesterol/HDL Ratio RPR Assessment and Plan (1) Major neurocognitive disorder Problem details: with behavioral disturbance Current visit: Yes Status: Acute (2) Delirium Problem details: Due to UTI Current visit: Yes Status: Acute (3) UTI (urinary tract infection), bacterial Current visit: Yes Status: Acute (4) Atrial fibrillation Current visit: Yes Status: Chronic (5) CAD (coronary artery disease) Current visit: Yes Status: Chronic (6) DM2 (diabetes mellitus, type 2) Current visit: Yes Status: Chronic (7) HTN (hypertension) Current visit: Yes Status: Chronic (8) Hypothyroid Current visit: Yes Status: Chronic [place] Risperidone 0.25mg po q HS Hospital Course Summary Disclaimer: The visit summary below is not to be considered part of the above Progress Note. Hospital Course: 02/16/17 10:03 *Cognitive/Behavioral Changes- Per attending. Will stop Cipro, as this can worsen delirium in the elderly. Ok for unit activities. Recent anesthesia for PPM. *UTI- Significant pyuria on recent UA. Recheck UA now. Stop Cipro and reassess once urine is back. *HTN- Continue metoprolol, Bumex. She is on Midodrine- suspect some history of orthostasis. Monitor BP. *Peripheral edema- Given Bumex dosing, suspect HF. [facility] and [facility] *Hypokalemia- Repeat labs now. May need to increase KCL dosing. *Leukopenia- She is on Femara. No hx of cancer is on record. Will need to clarify with family. *Anemia- normocytic. Assess B12, Folate. *DM2-Continue metformin. A1c is OK. Monitor accuchecks. *Hypothyroid- TSH high normal. We could potentially increase dose a bit. Monitor progress for now. *Atrial Fib- s/p PPM Rate control. No anticoagulation due to fall risk. *Full Code 02/17/17 09:41 Hypomagnesemia -improving; up to 1.5 -recheck in am -K stable at 3.9 UTI -r/o; UA neg. -Cipro dc'd DM2 -well controlled and normal A1c -Metformin dc'd -continue to monitor BG to assess trends since metformin was dc'd Suspect CHF -records being requested from [facility] -continue Bumex & metoprolol -EKG reviewed - paced rhythm -elevate legs when at rest ?Orthostasis -midodrine on hold -monitor orthostatics BID Psych -head CT shows moderate atrophy and chronic b/l cerebellar infarcts -observe for gait instability -RPR, lippid panel, T3, T4 pending -B12 523
[2017-02-18] MEDS: Oxycodone/Acetaminophen 5/325 1 TAB PO SCH (21:34)
[2017-02-19] MEDS: LEVOTHYROXINE 50 MCG TABLET PO SCH (06:01)
[2017-02-19] MEDS: METFORMIN 500 MG TABLET PO SCH ×2 (08:21→17:02)
[2017-02-19] MEDS: BUMETANIDE 1 MG TABLET PO SCH (08:22)
[2017-02-19] MEDS: CLOPIDOGREL 75 MG TABLET PO SCH (08:23)
[2017-02-19] MEDS: ASPIRIN *EC* 81 MG TABLET PO SCH (08:23)
[2017-02-19] MEDS: LETROZOLE 2.5 MG TABLET PO SCH (08:23)
[2017-02-19] MEDS: MIDODRINE 5 MG TABLET PO SCH ×3 (08:23→19:34)
[2017-02-19] MEDS: RANITIDINE 150 MG TABLET PO SCH ×2 (08:24→19:35)
--- NOTE | 2017-02-19 11:01 | Neuropsych Progress Note ---
[facility] Subjective Date: 02/19/17 - Sujective/Severity of Illness Medications: Al Hydroxide/Mg Hydroxide (Maalox Plus) 30 ml PO PRN PRN PRN Reason: Indigestion Aspirin (Ecotrin) 81 mg PO DAILY [facility] Last Admin: 02/19/17 08:23 Dose: 81 mg Bumetanide (Bumex) 2 mg PO DAILY [facility] Last Admin: 02/19/17 08:22 Dose: 2 mg Cholecalciferol (Vit. D-3) 1,000 unit PO DAILY [facility] Last Admin: 02/19/17 08:24 Dose: 1,000 unit Clopidogrel Bisulfate (Plavix) 75 mg PO DAILY [facility] Last Admin: 02/19/17 08:23 Dose: 75 mg Haloperidol (Haldol) 0.5 mg PO Q6H PRN PRN Reason: Extreme agitation Haloperidol Lactate (Haldol) 0.5 mg IM Q6H PRN PRN Reason: Extreme agitation Insulin Aspart (Novolog) 0 unit SQ SS PRN; Protocol PRN Reason: Hyperglycemia Last Admin: 02/18/17 12:22 Dose: 2 unit Letrozole (Femara) 2.5 mg PO DAILY [facility] Last Admin: 02/19/17 08:23 Dose: 2.5 mg Levothyroxine Sodium (Synthroid) 50 mcg PO ACB [facility] Last Admin: 02/19/17 06:01 Dose: 50 mcg Loperamide HCl (Imodium) 2 mg PO DAILY PRN PRN Reason: DIARRHEA, LOOSE STOOLS Lorazepam (Ativan Inj) 0.5 mg IM Q6H PRN PRN Reason: Extreme agitation Lorazepam (Ativan) 0.5 mg PO Q6H PRN PRN Reason: Extreme agitation Lorazepam (Ativan Intensol) 0.5 mg PO Q6H PRN Last Admin: 02/16/17 17:13 Dose: 0.5 mg Lubiprostone (Amitiza) 8 mcg PO PRN PRN PRN Reason: FOR IBS with CONSTIPATION Metformin HCl (Glucophage) 500 mg PO BIDWM [facility] Last Admin: 02/19/17 08:21 Dose: 500 mg Metoprolol Tartrate (Lopressor) 25 mg PO BIDWM [facility] Last Admin: 02/19/17 08:22 Dose: 25 mg Midodrine (Proamatine) 5 mg PO TID [facility] Last Admin: 02/19/17 08:23 Dose: 5 mg Oxycodone/Acetaminophen (Percocet 5/325) 1 tab PO HS [facility] Last Admin: 02/18/17 21:34 Dose: 1 tab Polyethylene Glycol (Miralax) 17 gm PO PRN PRN PRN Reason: Constipation Potassium Chloride (K-Dur) 10 meq PO BIDWM [facility] Last Admin: 02/19/17 08:21 Dose: 10 meq Ranitidine HCl (Zantac) 75 mg PO BID [facility] Last Admin: 02/19/17 08:24 Dose: 75 mg Risperidone (Risperdal) 0.[address] [facility] Last Admin: 02/18/17 21:34 Dose: 0.25 mg Subjective: Patient is a 81-year-old CF, who presented from home with increase confusion and agitation. She was said to have had a UTI which was treated with Ciprofloxacin. Since admission the later has been held and a repeat UA on admission showed 2-3 WBC and + 1 leukocyte esterase . Patient was seen today to be alert, but disoriented to time, place and only oriented to her person. She was started on Risperidone 0.25mg last night and she appears to have tolerated it without any side effect. She continues to be confused, but has not had any behavioral problem today. EKG on admission shows a Qtc of 450ms. Start Time: 09:30 Stop Time: 09:50 Mental Status Exam Vitals: Last Vital Signs Temp 98.0 F 02/19/17 08:25 Pulse 74 02/19/17 08:25 Resp 18 02/19/17 08:25 BP 102/65 02/19/17 08:25 Pulse Ox 95 02/19/17 08:25 Height: 1.6 m Weight: 63.3 kg - Mental Status Exam Muscle Strength/Tone: Normal Dressing: Casual Grooming: Good Attitude: Cooperative Motor Activity: Retardation Eye Contact: Good Speech: Normal Volume: Soft Rhythm: Appropriate Rhythm, Perseveration (about going home) Orientation: Disoriented to time, Disoriented to place, Oriented to person Mood: Other ("okay") Rate of Thoughts: Delayed Thought Organization: [place] Associations: Illogical Abstract Reasoning: Poor abstract reasoning Thought Content: Delusions Perception/Psychotic: Hx psychosis, 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 Language: Naming Impaired Memory: Poor-immediate Suicidal Ideation: None Homicidal Ideation: None Insight: Poor Judgement: Poor - Laboratory Result Diagrams: 02/17/17 06:04 02/17/17 06:04 Laboratory Results - last 24 hr 02/17/17 02/18/17 02/18/17 06:04 11:31 16:51 Glucometer 213 127 Free T4 2.04 Free T3 2.58 L 02/18/17 02/19/17 02/19/17 20:35 06:41 10:50 Glucometer 145 149 184 Free T4 Free T3 Assessment and Plan (1) Major neurocognitive disorder Problem details: with behavioral disturbance Current visit: Yes Status: Acute (2) Delirium Problem details: Due to UTI Current visit: Yes Status: Acute (3) UTI (urinary tract infection), bacterial Current visit: Yes Status: Acute (4) Atrial fibrillation Current visit: Yes Status: Chronic (5) CAD (coronary artery disease) Current visit: Yes Status: Chronic (6) DM2 (diabetes mellitus, type 2) Current visit: Yes Status: Chronic (7) HTN (hypertension) Current visit: Yes Status: Chronic (8) Hypothyroid Current visit: Yes Status: Chronic Cont Risperidone 0.25mg q HS and may titrate to 0.5mg if there is need to do so. Hospital Course Summary Disclaimer: The visit summary below is not to be considered part of the above Progress Note. Hospital Course: 02/16/17 10:03 *Cognitive/Behavioral Changes- Per attending. Will stop Cipro, as this can worsen delirium in the elderly. Ok for unit activities. Recent anesthesia for PPM. *UTI- Significant pyuria on recent UA. Recheck UA now. Stop Cipro and reassess once urine is back. *HTN- Continue metoprolol, Bumex. She is on Midodrine- suspect some history of orthostasis. Monitor BP. *Peripheral edema- Given Bumex dosing, suspect HF. Try and get echo from [facility]. *Hypokalemia- Repeat labs now. May need to increase KCL dosing. *Leukopenia- She is on Femara. No hx of cancer is on record. Will need to clarify with family. *Anemia- normocytic. Assess B12, Folate. *DM2-Continue metformin. A1c is OK. Monitor accuchecks. *Hypothyroid- TSH high normal. We could potentially increase dose a bit. Monitor progress for now. *Atrial Fib- s/p PPM Rate control. No anticoagulation due to fall risk. *Full Code 02/17/17 09:41 Hypomagnesemia -improving; up to 1.5 -recheck in am -K stable at 3.9 UTI -r/o; UA neg. -Cipro dc'd DM2 -well controlled and normal A1c -Metformin dc'd -continue to monitor BG to assess trends since metformin was dc'd Suspect CHF -records being requested from [facility] -continue Bumex & metoprolol -EKG reviewed - paced rhythm -elevate legs when at rest ?Orthostasis -midodrine on hold -monitor orthostatics BID Psych -head CT shows moderate atrophy and chronic b/l cerebellar infarcts -observe for gait instability -RPR, lippid panel, T3, T4 pending -B12 523
[2017-02-19] MEDS: Oxycodone/Acetaminophen 5/325 1 TAB PO SCH (19:34)
[2017-02-19] MEDS: INSULIN ASPART 100unit/ml INJECTION SQ PRN (20:04)
[2017-02-20] MEDS: RANITIDINE 150 MG TABLET PO SCH ×3 (00:13→20:48)
[2017-02-20] MEDS: MIDODRINE 5 MG TABLET PO SCH ×4 (00:13→20:50)
[2017-02-20] MEDS: Oxycodone/Acetaminophen 5/325 1 TAB PO SCH ×2 (00:13→20:51)
[2017-02-20] MEDS: LEVOTHYROXINE 50 MCG TABLET PO SCH (06:06)
[2017-02-20] MEDS: CLOPIDOGREL 75 MG TABLET PO SCH (08:33)
[2017-02-20] MEDS: LETROZOLE 2.5 MG TABLET PO SCH (08:33)
[2017-02-20] MEDS: BUMETANIDE 1 MG TABLET PO SCH (08:34)
[2017-02-20] MEDS: ASPIRIN *EC* 81 MG TABLET PO SCH (08:35)
[2017-02-20] MEDS: METFORMIN 500 MG TABLET PO SCH ×2 (08:36→17:15)
[2017-02-20] MEDS: INSULIN ASPART 100unit/ml INJECTION SQ PRN ×2 (11:56→20:57)
--- NOTE | 2017-02-20 18:24 | Neuropsych Progress Note ---
[facility] Subjective Date: 02/20/17 - Sujective/Severity of Illness Medications: Al Hydroxide/Mg Hydroxide (Maalox Plus) 30 ml PO PRN PRN PRN Reason: Indigestion Aspirin (Ecotrin) 81 mg PO DAILY [facility] Last Admin: 02/20/17 08:35 Dose: 81 mg Bumetanide (Bumex) 2 mg PO DAILY [facility] Last Admin: 02/20/17 08:34 Dose: 2 mg Cholecalciferol (Vit. D-3) 1,000 unit PO DAILY [facility] Last Admin: 02/20/17 08:36 Dose: 1,000 unit Clopidogrel Bisulfate (Plavix) 75 mg PO DAILY [facility] Last Admin: 02/20/17 08:33 Dose: 75 mg Haloperidol (Haldol) 0.5 mg PO Q6H PRN PRN Reason: Extreme agitation Haloperidol Lactate (Haldol) 0.5 mg IM Q6H PRN PRN Reason: Extreme agitation Insulin Aspart (Novolog) 0 unit SQ SS PRN; Protocol PRN Reason: Hyperglycemia Last Admin: 02/20/17 11:56 Dose: 1 unit Letrozole (Femara) 2.5 mg PO DAILY [facility] Last Admin: 02/20/17 08:33 Dose: 2.5 mg Levothyroxine Sodium (Synthroid) 50 mcg PO ACB [facility] Last Admin: 02/20/17 06:06 Dose: 50 mcg Loperamide HCl (Imodium) 2 mg PO DAILY PRN PRN Reason: DIARRHEA, LOOSE STOOLS Lorazepam (Ativan Inj) 0.5 mg IM Q6H PRN PRN Reason: Extreme agitation Lorazepam (Ativan) 0.5 mg PO Q6H PRN PRN Reason: Extreme agitation Lorazepam (Ativan Intensol) 0.5 mg PO Q6H PRN Last Admin: 02/16/17 17:13 Dose: 0.5 mg Lubiprostone (Amitiza) 8 mcg PO PRN PRN PRN Reason: FOR IBS with CONSTIPATION Metformin HCl (Glucophage) 500 mg PO BIDWM [facility] Last Admin: 02/20/17 17:15 Dose: 500 mg Metoprolol Tartrate (Lopressor) 25 mg PO BIDWM [facility] Last Admin: 02/20/17 17:16 Dose: Not Given Midodrine (Proamatine) 5 mg PO TID [facility] Last Admin: 02/20/17 16:20 Dose: Not Given Oxycodone/Acetaminophen (Percocet 5/325) [address] [facility] Last Admin: 02/20/17 00:13 Dose: Not Given Polyethylene Glycol (Miralax) 17 gm PO PRN PRN PRN Reason: Constipation Potassium Chloride (K-Dur) 10 meq PO BIDWM [facility] Last Admin: 02/20/17 17:15 Dose: 10 meq Ranitidine HCl (Zantac) 75 mg PO BID [facility] Last Admin: 02/20/17 08:34 Dose: 75 mg Risperidone (Risperdal) 0.[address] [facility] Last Admin: 02/20/17 00:13 Dose: Not Given Subjective: Pt seen and chart examined. Nursing reports pt does fairly well during the day but has some paranoia and confusion at night. Last night pt was paranoid and worried that staff was going to harm her. On face to face the pt is pleasant and cooperative. She is only oriented to self. She denies any pain. Tolerating meds Start Time: 18:00 Stop Time: 18:15 Mental Status Exam Vitals: Last Vital Signs Temp 97.0 F 02/20/17 07:46 Pulse 79 02/20/17 16:32 Resp 18 02/20/17 16:32 BP 100/60 02/20/17 16:32 Pulse Ox 99 02/20/17 16:32 Height: 1.6 m Weight: 63.3 kg - Mental Status Exam Muscle Strength/Tone: Normal Dressing: Casual Grooming: Good Attitude: Cooperative Motor Activity: Retardation Eye Contact: Good Speech: Normal Volume: Soft Rhythm: Appropriate Rhythm, Perseveration (about going home) Orientation: Disoriented to time, Disoriented to place, Oriented to person Mood: Other ("okay") Affect: Flat Rate of Thoughts: Delayed Thought Organization: [place] Associations: Illogical Abstract Reasoning: Poor abstract reasoning Thought Content: Delusions Perception/Psychotic: Hx psychosis, 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 Language: Naming Impaired Memory: Poor-immediate Suicidal Ideation: None Homicidal Ideation: None Insight: Poor Judgement: Poor - Laboratory Result Diagrams: 02/17/17 06:04 02/17/17 06:04 Laboratory Results - last 24 hr 02/19/17 02/20/17 02/20/17 19:51 06:19 10:38 Glucometer 187 114 189 02/20/17 11:42 Glucometer 158 Assessment and Plan (1) UTI (urinary tract infection), bacterial Current visit: Yes Status: Acute (2) HTN (hypertension) Current visit: Yes Status: Chronic (3) CAD (coronary artery disease) Current visit: Yes Status: Chronic (4) DM2 (diabetes mellitus, type 2) Current visit: Yes Status: Chronic (5) Hypothyroid Current visit: Yes Status: Chronic (6) Atrial fibrillation Current visit: Yes Status: Chronic (7) Delirium Problem details: Due to UTI Current visit: Yes Status: Acute (8) Major neurocognitive disorder Problem details: with behavioral disturbance Current visit: Yes Status: Acute Hospital Course Summary Disclaimer: The visit summary below is not to be considered part of the above Progress Note. Hospital Course: 02/16/17 10:03 *Cognitive/Behavioral Changes- Per attending. Will stop Cipro, as this can worsen delirium in the elderly. Ok for unit activities. Recent anesthesia for PPM. *UTI- Significant pyuria on recent UA. Recheck UA now. Stop Cipro and reassess once urine is back. *HTN- Continue metoprolol, Bumex. She is on Midodrine- suspect some history of orthostasis. Monitor BP. *Peripheral edema- Given Bumex dosing, suspect HF. Try and get echo from [facility]. *Hypokalemia- Repeat labs now. May need to increase KCL dosing. *Leukopenia- She is on Femara. No hx of cancer is on record. Will need to clarify with family. *Anemia- normocytic. Assess B12, Folate. *DM2-Continue metformin. A1c is OK. Monitor accuchecks. *Hypothyroid- TSH high normal. We could potentially increase dose a bit. Monitor progress for now. *Atrial Fib- s/p PPM Rate control. No anticoagulation due to fall risk. *Full Code 02/17/17 09:41 Hypomagnesemia -improving; up to 1.5 -recheck in am -K stable at 3.9 UTI -r/o; UA neg. -Cipro dc'd DM2 -well controlled and normal A1c -Metformin dc'd -continue to monitor BG to assess trends since metformin was dc'd Suspect CHF -records being requested from [facility] -continue Bumex & metoprolol -EKG reviewed - paced rhythm -elevate legs when at rest ?Orthostasis -midodrine on hold -monitor orthostatics BID Psych -head CT shows moderate atrophy and chronic b/l cerebellar infarcts -observe for gait instability -RPR, lippid panel, T3, T4 pending -B12 523 02/20/17 18:24 Increase Risperdal to 0.5mg PO QHS
[2017-02-21] MEDS: LEVOTHYROXINE 50 MCG TABLET PO SCH (06:33)
[2017-02-21] MEDS: METFORMIN 500 MG TABLET PO SCH ×2 (09:50→17:26)
[2017-02-21] MEDS: CLOPIDOGREL 75 MG TABLET PO SCH (09:51)
[2017-02-21] MEDS: LETROZOLE 2.5 MG TABLET PO SCH (09:51)
[2017-02-21] MEDS: BUMETANIDE 1 MG TABLET PO SCH (09:51)
[2017-02-21] MEDS: MIDODRINE 5 MG TABLET PO SCH ×3 (09:52→20:35)
[2017-02-21] MEDS: RANITIDINE 150 MG TABLET PO SCH ×2 (09:52→20:34)
[2017-02-21] MEDS: ASPIRIN *EC* 81 MG TABLET PO SCH (09:59)
[2017-02-21] MEDS ORDERED: HALOPERIDOL 1 MG/0.5 ML ORAL LIQUID PO PRN (11:40)
[2017-02-21] MEDS: INSULIN ASPART 100unit/ml INJECTION SQ PRN (17:24)
--- NOTE | 2017-02-21 18:29 | Neuropsych Progress Note ---
[facility] Subjective Date: 02/21/17 - Sujective/Severity of Illness Medications: Al Hydroxide/Mg Hydroxide (Maalox Plus) 30 ml PO PRN PRN PRN Reason: Indigestion Aspirin (Ecotrin) 81 mg PO DAILY [facility] Last Admin: 02/21/17 09:59 Dose: Not Given Bumetanide (Bumex) 2 mg PO DAILY [facility] Last Admin: 02/21/17 09:51 Dose: 2 mg Cholecalciferol (Vit. D-3) 1,000 unit PO DAILY [facility] Last Admin: 02/21/17 09:53 Dose: Not Given Clopidogrel Bisulfate (Plavix) 75 mg PO DAILY [facility] Last Admin: 02/21/17 09:51 Dose: 75 mg Haloperidol (Haldol) 0.5 mg PO Q6H PRN PRN Reason: Extreme agitation Haloperidol Decanoate (Haldol Liquid) 0.5 mg PO Q6H PRN Last Admin: 02/21/17 13:30 Dose: 0.5 mg Haloperidol Lactate (Haldol) 0.5 mg IM Q6H PRN PRN Reason: Extreme agitation Insulin Aspart (Novolog) 0 unit SQ SS PRN; Protocol PRN Reason: Hyperglycemia Last Admin: 02/21/17 17:24 Dose: 1 unit Letrozole (Femara) 2.5 mg PO DAILY [facility] Last Admin: 02/21/17 09:51 Dose: 2.5 mg Levothyroxine Sodium (Synthroid) 50 mcg PO ACB [facility] Last Admin: 02/21/17 06:33 Dose: 50 mcg Loperamide HCl (Imodium) 2 mg PO DAILY PRN PRN Reason: DIARRHEA, LOOSE STOOLS Lorazepam (Ativan Inj) 0.5 mg IM Q6H PRN PRN Reason: Extreme agitation Lorazepam (Ativan) 0.5 mg PO Q6H PRN PRN Reason: Extreme agitation Lorazepam (Ativan Intensol) 0.5 mg PO Q6H PRN Last Admin: 02/16/17 17:13 Dose: 0.5 mg Lubiprostone (Amitiza) 8 mcg PO PRN PRN PRN Reason: FOR IBS with CONSTIPATION Metformin HCl (Glucophage) 500 mg PO BIDWM [facility] Last Admin: 02/21/17 17:26 Dose: 500 mg Metoprolol Tartrate (Lopressor) 25 mg PO BIDWM [facility] Last Admin: 02/21/17 17:26 Dose: 25 mg Midodrine (Proamatine) 5 mg PO TID [facility] Last Admin: 02/21/17 15:12 Dose: 5 mg Oxycodone/Acetaminophen (Percocet 5/325) 1 tab PO [facility] Last Admin: 02/20/17 20:51 Dose: 1 tab Polyethylene Glycol (Miralax) 17 gm PO PRN PRN PRN Reason: Constipation Potassium Chloride (K-Dur) 10 meq PO BIDWM [facility] Last Admin: 02/21/17 17:26 Dose: 10 meq Ranitidine HCl (Zantac) 75 mg PO BID [facility] Last Admin: 02/21/17 09:52 Dose: 75 mg Risperidone (Risperdal) 0.5 mg PO [facility] Last Admin: 02/20/17 20:51 Dose: 0.5 mg Subjective: Pt seen and chart examined. Nursing reports pt remains irritable and confused. Slept 9 hours and has a good appetite. Continues to have some paranoia during the day and is irritable with a labile mood worse in the evenings. On face to face the pt is pleasant. She is only oriented to self. She denies pain. Tolerating meds Start Time: 17:30 Stop Time: 17:45 Mental Status Exam Vitals: Last Vital Signs Temp 97.6 F 02/21/17 16:12 Pulse 77 02/21/17 16:12 Resp 16 02/21/17 16:12 BP 141/70 H 02/21/17 16:12 Pulse Ox 100 02/21/17 16:12 Height: 1.6 m Weight: 63.3 kg - Mental Status Exam Muscle Strength/Tone: Normal Dressing: Casual Grooming: Good Attitude: Cooperative Motor Activity: Retardation Eye Contact: Good Speech: Normal Volume: Soft Rhythm: Appropriate Rhythm, Perseveration (about going home) Orientation: Disoriented to time, Disoriented to place, Oriented to person Mood: Other ("okay") Rate of Thoughts: Delayed Thought Organization: [place] Associations: Illogical Abstract Reasoning: Poor abstract reasoning Thought Content: Delusions Perception/Psychotic: Hx psychosis, 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 Language: Naming Impaired Memory: Poor-immediate Suicidal Ideation: None Homicidal Ideation: None Insight: Poor Judgement: Poor - Laboratory Result Diagrams: 02/17/17 06:04 02/21/17 05:14 Laboratory Results - last 24 hr 02/20/17 02/21/17 02/21/17 20:18 05:13 05:14 Turbidity < 20 Sodium 133 L Potassium 4.3 Chloride 96 L Carbon Dioxide 27 Anion Gap 10 BUN 44.0 H Creatinine 1.3 GFR Calculation 53 BUN/Creatinine Ratio 34 H Glucose 118 H Glucometer 162 111 Calculated Osmolality 268 Calcium 10.0 Magnesium 1.7 Icterus Index < 2 Specimen Hemolysis < 15 02/21/17 17:05 Turbidity Sodium Potassium Chloride Carbon Dioxide Anion Gap BUN Creatinine GFR Calculation BUN/Creatinine Ratio Glucose Glucometer 189 Calculated Osmolality Calcium Magnesium Icterus Index Specimen Hemolysis Assessment and Plan (1) UTI (urinary tract infection), bacterial Current visit: Yes Status: Acute (2) HTN (hypertension) Current visit: Yes Status: Chronic (3) CAD (coronary artery disease) Current visit: Yes Status: Chronic (4) DM2 (diabetes mellitus, type 2) Current visit: Yes Status: Chronic (5) Hypothyroid Current visit: Yes Status: Chronic (6) Atrial fibrillation Current visit: Yes Status: Chronic (7) Delirium Problem details: Due to UTI Current visit: Yes Status: Acute (8) Major neurocognitive disorder Problem details: with behavioral disturbance Current visit: Yes Status: Acute Hospital Course Summary Disclaimer: The visit summary below is not to be considered part of the above Progress Note. Hospital Course: 02/16/17 10:03 *Cognitive/Behavioral Changes- Per attending. Will stop Cipro, as this can worsen delirium in the elderly. Ok for unit activities. Recent anesthesia for PPM. *UTI- Significant pyuria on recent UA. Recheck UA now. Stop Cipro and reassess once urine is back. *HTN- Continue metoprolol, Bumex. She is on Midodrine- suspect some history of orthostasis. Monitor BP. *Peripheral edema- Given Bumex dosing, suspect HF. Try and get echo from [facility]. *Hypokalemia- Repeat labs now. May need to increase KCL dosing. *Leukopenia- She is on Femara. No hx of cancer is on record. Will need to clarify with family. *Anemia- normocytic. Assess B12, Folate. *DM2-Continue metformin. A1c is OK. Monitor accuchecks. *Hypothyroid- TSH high normal. We could potentially increase dose a bit. Monitor progress for now. *Atrial Fib- s/p PPM Rate control. No anticoagulation due to fall risk. *Full Code 02/17/17 09:41 Hypomagnesemia -improving; up to 1.5 -recheck in am -K stable at 3.9 UTI -r/o; UA neg. -Cipro dc'd DM2 -well controlled and normal A1c -Metformin dc'd -continue to monitor BG to assess trends since metformin was dc'd Suspect CHF -records being requested from [facility] -continue Bumex & metoprolol -EKG reviewed - paced rhythm -elevate legs when at rest ?Orthostasis -midodrine on hold -monitor orthostatics BID Psych -head CT shows moderate atrophy and chronic b/l cerebellar infarcts -observe for gait instability -RPR, lippid panel, T3, T4 pending -B12 523 02/20/17 18:24 Increase Risperdal to 0.5mg PO QHS 02/21/17 18:28 Add Risperdal 0.25mg daily
[2017-02-21] MEDS: Oxycodone/Acetaminophen 5/325 1 TAB PO SCH (20:34)
[2017-02-22] MEDS: Oxycodone/Acetaminophen 5/325 1 TAB PO SCH ×2 (03:55→22:41)
[2017-02-22] MEDS: LEVOTHYROXINE 50 MCG TABLET PO SCH (05:36)
[2017-02-22] MEDS: METFORMIN 500 MG TABLET PO SCH ×2 (07:46→16:53)
[2017-02-22] MEDS: ASPIRIN *EC* 81 MG TABLET PO SCH (07:47)
[2017-02-22] MEDS: LETROZOLE 2.5 MG TABLET PO SCH (07:47)
[2017-02-22] MEDS: BUMETANIDE 1 MG TABLET PO SCH (07:47)
[2017-02-22] MEDS: CLOPIDOGREL 75 MG TABLET PO SCH (07:48)
[2017-02-22] MEDS: MIDODRINE 5 MG TABLET PO SCH ×3 (07:48→22:41)
[2017-02-22] MEDS: RANITIDINE 150 MG TABLET PO SCH ×2 (07:49→22:41)
--- NOTE | 2017-02-22 11:01 | Progress Note ---
Subjective: Nury is seen this morning while in her room, putting clothing away with nursing staff. She is alert during examination and denies having any pain or shortness of breath. Appetite is fine, patient is urinating without difficulty, bowels are moving regularly. BP 114/57. Objective Vital signs: Temperature 97.4 F 02/22/17 08:00 Pulse Rate 70 02/22/17 08:00 Respiratory Rate 16 02/22/17 08:00 Blood Pressure 114/57 02/22/17 08:00 Pulse Oximetry 100 02/22/17 08:00 Oxygen Delivery Method Room Air Fraction of Inspired Oxygen 21 Weight: 55.77 kg - Constitutional Present: no acute distress - Routine HEENT Exam Head: Present: normocephalic, atraumatic Eye: Present: EOMI, PERRL ENT: Present: mucous membranes moist - Routine Respiratory Exam Present: CTA bilaterally - Routine Cardiovascular Exam Present: RRR, S1, S2 - Routine Abdominal Exam Present: soft, normoactive bowel sounds, non tender - Routine Back/Spine/Pelvis Exam Back/Spine: Present: full ROM - Routine Skin Exam Present: intact, dry, warm - Routine Neurological Exam Present: alert, CN II-XII intact, moving all extremities Results - Labs CBC & Chem 7: 02/17/17 06:04 02/21/17 05:14 Assessment and Plan (1) Cognitive and behavioral changes Current visit: Yes Status: Acute (2) UTI (urinary tract infection), bacterial Current visit: Yes Status: Acute (3) HTN (hypertension) Current visit: Yes Status: Chronic (4) CAD (coronary artery disease) Current visit: Yes Status: Chronic (5) Chronic edema Current visit: Yes Status: Chronic (6) Hypokalemia Current visit: Yes Status: Acute (7) DM2 (diabetes mellitus, type 2) Current visit: Yes Status: Chronic (8) Hypothyroid Current visit: Yes Status: Chronic (9) Atrial fibrillation Current visit: Yes Status: Chronic 02/16/17 09:54 s/p PPM December 2016- [facility]. Request records for Echo, Cardiac records (None at [facility]) (10) Leukopenia Current visit: Yes Status: Acute (11) Normocytic normochromic anemia Current visit: Yes Status: Chronic (12) IBS (irritable bowel syndrome) Current visit: Yes Status: Acute Assessment and Plan: 02/22/17 Hyponatremia- sodium yesterday was 133. We will recheck this tomorrow DM2 Continue to monitor blood sugars carefully. Sliding scale NovoLog as needed, and metformin 500 twice a day Hemoglobin A1c was found to be 6.6. CHF/orthostasis Continue Bumex & metoprolol. Blood pressure appears to be well controlled Continue on Midrine 3 times a day Psych per Dr Samson Sepsis Assessment - Evaluation Sepsis screening result: No Definite Risk Hospital Course Summary Disclaimer: The visit summary below is not to be considered part of the above Progress Note. Hospital Course: 02/16/17 10:03 *Cognitive/Behavioral Changes- Per attending. Will stop Cipro, as this can worsen delirium in the elderly. Ok for unit activities. Recent anesthesia for PPM. *UTI- Significant pyuria on recent UA. Recheck UA now. Stop Cipro and reassess once urine is back. *HTN- Continue metoprolol, Bumex. She is on Midodrine- suspect some history of orthostasis. Monitor BP. *Peripheral edema- Given Bumex dosing, suspect HF. Try and get echo from [facility]. *Hypokalemia- Repeat labs now. May need to increase KCL dosing. *Leukopenia- She is on Femara. No hx of cancer is on record. Will need to clarify with family. *Anemia- normocytic. Assess B12, Folate. *DM2-Continue metformin. A1c is OK. Monitor accuchecks. *Hypothyroid- TSH high normal. We could potentially increase dose a bit. Monitor progress for now. *Atrial Fib- s/p PPM Rate control. No anticoagulation due to fall risk. *Full Code 02/17/17 09:41 Hypomagnesemia -improving; up to 1.5 -recheck in am -K stable at 3.9 UTI -r/o; UA neg. -Cipro dc'd DM2 -well controlled and normal A1c -Metformin dc'd -continue to monitor BG to assess trends since metformin was dc'd Suspect CHF -records being requested from [facility] -continue Bumex & metoprolol -EKG reviewed - paced rhythm -elevate legs when at rest ?Orthostasis -midodrine on hold -monitor orthostatics BID Psych -head CT shows moderate atrophy and chronic b/l cerebellar infarcts -observe for gait instability -RPR, lippid panel, T3, T4 pending -B12 523 02/20/17 18:24 Increase Risperdal to 0.5mg PO QHS 02/22/17 Hyponatremia- sodium yesterday was 133. We will recheck this tomorrow DM2 Continue to monitor blood sugars carefully. Sliding scale NovoLog as needed, and metformin 500 twice a day Hemoglobin A1c was found to be 6.6. CHF/orthostasis Continue Bumex & metoprolol. Blood pressure appears to be well controlled Continue on Midrine 3 times a day Psych per Dr Samson
--- NOTE | 2017-02-22 11:13 | Neuropsych Progress Note ---
[facility] Subjective Date: 02/22/17 - Sujective/Severity of Illness Medications: Al Hydroxide/Mg Hydroxide (Maalox Plus) 30 ml PO PRN PRN PRN Reason: Indigestion Aspirin (Ecotrin) 81 mg PO DAILY [facility] Last Admin: 02/22/17 07:47 Dose: 81 mg Bumetanide (Bumex) 2 mg PO DAILY [facility] Last Admin: 02/22/17 07:47 Dose: 2 mg Cholecalciferol (Vit. D-3) 1,000 unit PO DAILY [facility] Last Admin: 02/22/17 07:49 Dose: 1,000 unit Clopidogrel Bisulfate (Plavix) 75 mg PO DAILY [facility] Last Admin: 02/22/17 07:48 Dose: 75 mg Haloperidol (Haldol) 0.5 mg PO Q6H PRN PRN Reason: Extreme agitation Haloperidol Decanoate (Haldol Liquid) 0.5 mg PO Q6H PRN Last Admin: 02/21/17 13:30 Dose: 0.5 mg Haloperidol Lactate (Haldol) 0.5 mg IM Q6H PRN PRN Reason: Extreme agitation Insulin Aspart (Novolog) 0 unit SQ SS PRN; Protocol PRN Reason: Hyperglycemia Last Admin: 02/21/17 17:24 Dose: 1 unit Letrozole (Femara) 2.5 mg PO DAILY [facility] Last Admin: 02/22/17 07:47 Dose: 2.5 mg Levothyroxine Sodium (Synthroid) 50 mcg PO ACB [facility] Last Admin: 02/22/17 05:36 Dose: 50 mcg Loperamide HCl (Imodium) 2 mg PO DAILY PRN PRN Reason: DIARRHEA, LOOSE STOOLS Lorazepam (Ativan Inj) 0.5 mg IM Q6H PRN PRN Reason: Extreme agitation Lorazepam (Ativan) 0.5 mg PO Q6H PRN PRN Reason: Extreme agitation Lorazepam (Ativan Intensol) 0.5 mg PO Q6H PRN Last Admin: 02/16/17 17:13 Dose: 0.5 mg Lubiprostone (Amitiza) 8 mcg PO PRN PRN PRN Reason: FOR IBS with CONSTIPATION Metformin HCl (Glucophage) 500 mg PO BIDWM [facility] Last Admin: 02/22/17 07:46 Dose: 500 mg Metoprolol Tartrate (Lopressor) 25 mg PO BIDWM [facility] Last Admin: 02/22/17 07:47 Dose: 25 mg Midodrine (Proamatine) 5 mg PO TID [facility] Last Admin: 02/22/17 07:48 Dose: 5 mg Oxycodone/Acetaminophen (Percocet 5/325) 1 tab PO [facility] Last Admin: 02/22/17 03:55 Dose: Not Given Polyethylene Glycol (Miralax) 17 gm PO PRN PRN PRN Reason: Constipation Potassium Chloride (K-Dur) 10 meq PO BIDWM [facility] Last Admin: 02/22/17 07:46 Dose: 10 meq Ranitidine HCl (Zantac) 75 mg PO BID [facility] Last Admin: 02/22/17 07:49 Dose: 75 mg Risperidone (Risperdal) 0.5 mg PO [facility] Last Admin: 02/21/17 21:05 Dose: 0.5 mg Risperidone (Risperdal) 0.25 mg PO DAILY [facility] Last Admin: 02/22/17 07:48 Dose: 0.25 mg Subjective: Pt seen and chart examined. Nursing reports pt is doing a little better. Sleeping well and has a good appetite. No behaviors noted. On face to face the pt is pleasant but confused. She is only oriented to self. She denies any pain. Tolerating meds Start Time: 10:30 Stop Time: 10:45 Mental Status Exam Vitals: Last Vital Signs Temp 97.4 F 02/22/17 08:00 Pulse 70 02/22/17 08:00 Resp 16 02/22/17 08:00 BP 114/57 02/22/17 08:00 Pulse Ox 100 02/22/17 08:00 Height: 1.6 m Weight: 55.77 kg - Mental Status Exam Muscle Strength/Tone: Normal Dressing: Casual Grooming: Good Attitude: Cooperative Motor Activity: Retardation Eye Contact: Good Speech: Normal Volume: Soft Rhythm: Appropriate Rhythm, Perseveration (about going home) Orientation: Disoriented to time, Disoriented to place, Oriented to person Mood: Other ("okay") Rate of Thoughts: Delayed Thought Organization: [place] Associations: Illogical Abstract Reasoning: Poor abstract reasoning Thought Content: Delusions Perception/Psychotic: Hx psychosis, not current Language: Naming Impaired Memory: Poor-immediate Suicidal Ideation: None Homicidal Ideation: None Insight: Poor Judgement: Poor - Laboratory Result Diagrams: 02/17/17 06:04 02/21/17 05:14 Laboratory Results - last 24 hr 02/21/17 02/21/17 17:05 20:33 Glucometer 189 106 Assessment and Plan (1) UTI (urinary tract infection), bacterial Current visit: Yes Status: Acute (2) HTN (hypertension) Current visit: Yes Status: Chronic (3) CAD (coronary artery disease) Current visit: Yes Status: Chronic (4) DM2 (diabetes mellitus, type 2) Current visit: Yes Status: Chronic (5) Hypothyroid Current visit: Yes Status: Chronic (6) Atrial fibrillation Current visit: Yes Status: Chronic (7) Delirium Problem details: Due to UTI Current visit: Yes Status: Acute (8) Major neurocognitive disorder Problem details: with behavioral disturbance Current visit: Yes Status: Acute Continue current care Hospital Course Summary Disclaimer: The visit summary below is not to be considered part of the above Progress Note. Hospital Course: 02/16/17 10:03 *Cognitive/Behavioral Changes- Per attending. Will stop Cipro, as this can worsen delirium in the elderly. Ok for unit activities. Recent anesthesia for PPM. *UTI- Significant pyuria on recent UA. Recheck UA now. Stop Cipro and reassess once urine is back. *HTN- Continue metoprolol, Bumex. She is on Midodrine- suspect some history of orthostasis. Monitor BP. *Peripheral edema- Given Bumex dosing, suspect HF. Try and get echo from [facility]. *Hypokalemia- Repeat labs now. May need to increase KCL dosing. *Leukopenia- She is on Femara. No hx of cancer is on record. Will need to clarify with family. *Anemia- normocytic. Assess B12, Folate. *DM2-Continue metformin. A1c is OK. Monitor accuchecks. *Hypothyroid- TSH high normal. We could potentially increase dose a bit. Monitor progress for now. *Atrial Fib- s/p PPM Rate control. No anticoagulation due to fall risk. *Full Code 02/17/17 09:41 Hypomagnesemia -improving; up to 1.5 -recheck in am -K stable at 3.9 UTI -r/o; UA neg. -Cipro dc'd DM2 -well controlled and normal A1c -Metformin dc'd -continue to monitor BG to assess trends since metformin was dc'd Suspect CHF -records being requested from [facility] -continue Bumex & metoprolol -EKG reviewed - paced rhythm -elevate legs when at rest ?Orthostasis -midodrine on hold -monitor orthostatics BID Psych -head CT shows moderate atrophy and chronic b/l cerebellar infarcts -observe for gait instability -RPR, lippid panel, T3, T4 pending -B12 523 02/20/17 18:24 Increase Risperdal to 0.5mg PO QHS 02/22/17 Hyponatremia- sodium yesterday was 133. We will recheck this tomorrow DM2 Continue to monitor blood sugars carefully. Sliding scale NovoLog as needed, and metformin 500 twice a day Hemoglobin A1c was found to be 6.6. CHF/orthostasis Continue Bumex & metoprolol. Blood pressure appears to be well controlled Continue on Midrine 3 times a day Psych per Dr Samson 02/22/17 11:13 Continue current care
[2017-02-22] MEDS: INSULIN ASPART 100unit/ml INJECTION SQ PRN ×2 (14:38→22:46)
[2017-02-23] MEDS: LEVOTHYROXINE 50 MCG TABLET PO SCH (07:00)
[2017-02-23] MEDS: ASPIRIN *EC* 81 MG TABLET PO SCH (09:54)
[2017-02-23] MEDS: LETROZOLE 2.5 MG TABLET PO SCH (09:55)
[2017-02-23] MEDS: METFORMIN 500 MG TABLET PO SCH ×2 (09:55→17:12)
[2017-02-23] MEDS: RANITIDINE 150 MG TABLET PO SCH ×2 (09:56→21:01)
[2017-02-23] MEDS: MIDODRINE 5 MG TABLET PO SCH ×4 (09:57→21:09)
[2017-02-23] MEDS: CLOPIDOGREL 75 MG TABLET PO SCH (09:57)
[2017-02-23] MEDS: BUMETANIDE 1 MG TABLET PO SCH (09:57)
[2017-02-23] MEDS: ACETAMINOPHEN 325 MG TABLET PO PRN (10:32)
--- NOTE | 2017-02-23 10:59 | Neuropsych Progress Note ---
[facility] Subjective Date: 02/23/17 - Sujective/Severity of Illness Medications: Acetaminophen (Tylenol) 325 - 650 mg PO Q5H PRN PRN Reason: Discomfort Last Admin: 02/23/17 10:32 Dose: 650 mg Al Hydroxide/Mg Hydroxide (Maalox Plus) 30 ml PO PRN PRN PRN Reason: Indigestion Aspirin (Ecotrin) 81 mg PO DAILY [facility] Last Admin: 02/23/17 09:54 Dose: 81 mg Bumetanide (Bumex) 2 mg PO DAILY [facility] Last Admin: 02/23/17 09:57 Dose: Not Given Cholecalciferol (Vit. D-3) 1,000 unit PO DAILY [facility] Last Admin: 02/23/17 09:55 Dose: 1,000 unit Clopidogrel Bisulfate (Plavix) 75 mg PO DAILY [facility] Last Admin: 02/23/17 09:57 Dose: 75 mg Haloperidol (Haldol) 0.5 mg PO Q6H PRN PRN Reason: Extreme agitation Haloperidol Decanoate (Haldol Liquid) 0.5 mg PO Q6H PRN Last Admin: 02/21/17 13:30 Dose: 0.5 mg Haloperidol Lactate (Haldol) 0.5 mg IM Q6H PRN PRN Reason: Extreme agitation Insulin Aspart (Novolog) 0 unit SQ SS PRN; Protocol PRN Reason: Hyperglycemia Last Admin: 02/22/17 22:46 Dose: 1 unit Letrozole (Femara) 2.5 mg PO DAILY [facility] Last Admin: 02/23/17 09:55 Dose: 2.5 mg Levothyroxine Sodium (Synthroid) 50 mcg PO ACB [facility] Last Admin: 02/23/17 07:00 Dose: 50 mcg Loperamide HCl (Imodium) 2 mg PO DAILY PRN PRN Reason: DIARRHEA, LOOSE STOOLS Lorazepam (Ativan Inj) 0.5 mg IM Q6H PRN PRN Reason: Extreme agitation Lorazepam (Ativan) 0.5 mg PO Q6H PRN PRN Reason: Extreme agitation Lorazepam (Ativan Intensol) 0.5 mg PO Q6H PRN Last Admin: 02/16/17 17:13 Dose: 0.5 mg Lubiprostone (Amitiza) 8 mcg PO PRN PRN PRN Reason: FOR IBS with CONSTIPATION Metformin HCl (Glucophage) 500 mg PO BIDWM [facility] Last Admin: 02/23/17 09:55 Dose: 500 mg Metoprolol Tartrate (Lopressor) 25 mg PO BIDWM [facility] Last Admin: 02/23/17 09:57 Dose: Not Given Midodrine (Proamatine) 5 mg PO TID [facility] Last Admin: 02/23/17 09:57 Dose: 5 mg Oxycodone/Acetaminophen (Percocet 5/325) 1 tab PO [facility] Last Admin: 02/22/17 22:41 Dose: 1 tab Polyethylene Glycol (Miralax) 17 gm PO PRN PRN PRN Reason: Constipation Potassium Chloride (K-Dur) 10 meq PO BIDWM [facility] Last Admin: 02/23/17 09:56 Dose: 10 meq Ranitidine HCl (Zantac) 75 mg PO BID [facility] Last Admin: 02/23/17 09:56 Dose: 75 mg Risperidone (Risperdal) 0.5 mg PO [facility] Last Admin: 02/22/17 22:42 Dose: 0.5 mg Risperidone (Risperdal) 0.25 mg PO DAILY [facility] Last Admin: 02/23/17 09:55 Dose: 0.25 mg Subjective: Pt seen and chart examined. Nursing reports pt was paranoid last night and possibly responding to internal stimuli. Was talking to someone in the room who was not there and was trying to block her door. On face to face the pt is pleasant but confused. She is only oriented to self. She denies any pain and voices no concerns at this time. Tolerating meds Start Time: 10:30 Stop Time: 10:45 Mental Status Exam Vitals: Last Vital Signs Temp 96.8 F 02/23/17 07:53 Pulse 77 02/23/17 07:53 Resp 14 02/23/17 07:53 BP 86/50 02/23/17 07:53 Pulse Ox 98 02/23/17 07:53 Height: 1.6 m Weight: 55.77 kg - Mental Status Exam Muscle Strength/Tone: Normal Dressing: Casual Grooming: Good Attitude: Cooperative Motor Activity: Retardation Eye Contact: Good Speech: Normal Volume: Soft Rhythm: Appropriate Rhythm, Perseveration (about going home) Orientation: Disoriented to time, Disoriented to place, Oriented to person Mood: Other ("okay") Rate of Thoughts: Delayed Thought Organization: [place] Associations: Illogical Abstract Reasoning: Poor abstract reasoning Thought Content: Delusions Perception/Psychotic: Hx psychosis, not current Language: Naming Impaired Memory: Poor-immediate Suicidal Ideation: None Homicidal Ideation: None Insight: Poor Judgement: Poor - Laboratory Result Diagrams: 02/17/17 06:04 02/23/17 04:42 Laboratory Results - last 24 hr 02/22/17 02/22/17 02/22/17 14:02 16:52 21:08 Turbidity Sodium Potassium Chloride Carbon Dioxide Anion Gap BUN Creatinine GFR Calculation BUN/Creatinine Ratio Glucose Glucometer 150 145 162 Calculated Osmolality Calcium Icterus Index Specimen Hemolysis 02/23/17 02/23/17 04:42 04:43 Turbidity < 20 Sodium 134 Potassium 3.9 Chloride 96 L Carbon Dioxide 25 Anion Gap 13 BUN 55.0 H* Creatinine 1.2 GFR Calculation 58 BUN/Creatinine Ratio 46 H Glucose 136 H Glucometer 123 Calculated Osmolality 275 Calcium 9.6 Icterus Index < 2 Specimen Hemolysis < 15 Assessment and Plan (1) UTI (urinary tract infection), bacterial Current visit: Yes Status: Acute (2) HTN (hypertension) Current visit: Yes Status: Chronic (3) CAD (coronary artery disease) Current visit: Yes Status: Chronic (4) DM2 (diabetes mellitus, type 2) Current visit: Yes Status: Chronic (5) Hypothyroid Current visit: Yes Status: Chronic (6) Atrial fibrillation Current visit: Yes Status: Chronic (7) Delirium Problem details: Due to UTI Current visit: Yes Status: Acute (8) Major neurocognitive disorder Problem details: with behavioral disturbance Current visit: Yes Status: Acute Continue current care Hospital Course Summary Disclaimer: The visit summary below is not to be considered part of the above Progress Note. Hospital Course: 02/16/17 10:03 *Cognitive/Behavioral Changes- Per attending. Will stop Cipro, as this can worsen delirium in the elderly. Ok for unit activities. Recent anesthesia for PPM. *UTI- Significant pyuria on recent UA. Recheck UA now. Stop Cipro and reassess once urine is back. *HTN- Continue metoprolol, Bumex. She is on Midodrine- suspect some history of orthostasis. Monitor BP. *Peripheral edema- Given Bumex dosing, suspect HF. Try and get echo from [facility]. *Hypokalemia- Repeat labs now. May need to increase KCL dosing. *Leukopenia- She is on Femara. No hx of cancer is on record. Will need to clarify with family. *Anemia- normocytic. Assess B12, Folate. *DM2-Continue metformin. A1c is OK. Monitor accuchecks. *Hypothyroid- TSH high normal. We could potentially increase dose a bit. Monitor progress for now. *Atrial Fib- s/p PPM Rate control. No anticoagulation due to fall risk. *Full Code 02/17/17 09:41 Hypomagnesemia -improving; up to 1.5 -recheck in am -K stable at 3.9 UTI -r/o; UA neg. -Cipro dc'd DM2 -well controlled and normal A1c -Metformin dc'd -continue to monitor BG to assess trends since metformin was dc'd Suspect CHF -records being requested from [facility] -continue Bumex & metoprolol -EKG reviewed - paced rhythm -elevate legs when at rest ?Orthostasis -midodrine on hold -monitor orthostatics BID Psych -head CT shows moderate atrophy and chronic b/l cerebellar infarcts -observe for gait instability -RPR, lippid panel, T3, T4 pending -B12 523 02/20/17 18:24 Increase Risperdal to 0.5mg PO QHS 02/22/17 Hyponatremia- sodium yesterday was 133. We will recheck this tomorrow DM2 Continue to monitor blood sugars carefully. Sliding scale NovoLog as needed, and metformin 500 twice a day Hemoglobin A1c was found to be 6.6. CHF/orthostasis Continue Bumex & metoprolol. Blood pressure appears to be well controlled Continue on Midrine 3 times a day Psych per Dr Samson 02/22/17 11:13 Continue current care 02/23/17 10:59 Continue current care
[2017-02-23] MEDS: INSULIN ASPART 100unit/ml INJECTION SQ PRN (11:22)
[2017-02-23] MEDS: Oxycodone/Acetaminophen 5/325 1 TAB PO SCH (21:08)
[2017-02-24] MEDS: LEVOTHYROXINE 50 MCG TABLET PO SCH (06:49)
[2017-02-24] MEDS: ACETAMINOPHEN 325 MG TABLET PO PRN (08:34)
[2017-02-24] MEDS: MIDODRINE 5 MG TABLET PO SCH ×3 (08:35→20:09)
[2017-02-24] MEDS: ASPIRIN *EC* 81 MG TABLET PO SCH (08:35)
[2017-02-24] MEDS: LETROZOLE 2.5 MG TABLET PO SCH (08:35)
[2017-02-24] MEDS: METFORMIN 500 MG TABLET PO SCH ×2 (08:35→17:15)
[2017-02-24] MEDS: CLOPIDOGREL 75 MG TABLET PO SCH (08:36)
[2017-02-24] MEDS: RANITIDINE 150 MG TABLET PO SCH ×2 (08:36→20:08)
--- NOTE | 2017-02-24 13:28 | Neuropsych Progress Note ---
[facility] Subjective Date: 02/24/17 - Sujective/Severity of Illness Medications: Acetaminophen (Tylenol) 325 - 650 mg PO Q5H PRN PRN Reason: Discomfort Last Admin: 02/24/17 08:34 Dose: 650 mg Al Hydroxide/Mg Hydroxide (Maalox Plus) 30 ml PO PRN PRN PRN Reason: Indigestion Aspirin (Ecotrin) 81 mg PO DAILY [facility] Last Admin: 02/24/17 08:35 Dose: 81 mg Bumetanide (Bumex) 2 mg PO DAILY [facility] Last Admin: 02/23/17 09:57 Dose: Not Given Cholecalciferol (Vit. D-3) 1,000 unit PO DAILY [facility] Last Admin: 02/24/17 08:36 Dose: 1,000 unit Clopidogrel Bisulfate (Plavix) 75 mg PO DAILY [facility] Last Admin: 02/24/17 08:36 Dose: 75 mg Haloperidol (Haldol) 0.5 mg PO Q6H PRN PRN Reason: Extreme agitation Last Admin: 02/23/17 18:00 Dose: 0.5 mg Haloperidol Decanoate (Haldol Liquid) 0.5 mg PO Q6H PRN Last Admin: 02/21/17 13:30 Dose: 0.5 mg Haloperidol Lactate (Haldol) 0.5 mg IM Q6H PRN PRN Reason: Extreme agitation Insulin Aspart (Novolog) 0 unit SQ SS PRN; Protocol PRN Reason: Hyperglycemia Last Admin: 02/23/17 11:22 Dose: 3 unit Letrozole (Femara) 2.5 mg PO DAILY [facility] Last Admin: 02/24/17 08:35 Dose: 2.5 mg Levothyroxine Sodium (Synthroid) 50 mcg PO ACB [facility] Last Admin: 02/24/17 06:49 Dose: 50 mcg Loperamide HCl (Imodium) 2 mg PO DAILY PRN PRN Reason: DIARRHEA, LOOSE STOOLS Lorazepam (Ativan Inj) 0.5 mg IM Q6H PRN PRN Reason: Extreme agitation Lorazepam (Ativan) 0.5 mg PO Q6H PRN PRN Reason: Extreme agitation Lorazepam (Ativan Intensol) 0.5 mg PO Q6H PRN Last Admin: 02/16/17 17:13 Dose: 0.5 mg Lubiprostone (Amitiza) 8 mcg PO PRN PRN PRN Reason: FOR IBS with CONSTIPATION Metformin HCl (Glucophage) 500 mg PO BIDWM [facility] Last Admin: 02/24/17 08:35 Dose: 500 mg Metoprolol Tartrate (Lopressor) 12.5 mg PO BIDWM [facility] Last Admin: 02/23/17 17:11 Dose: 12.5 mg Midodrine (Proamatine) 5 mg PO TID [facility] Last Admin: 02/24/17 08:35 Dose: 5 mg Oxycodone/Acetaminophen (Percocet 5/325) 1 tab PO HS [facility] Last Admin: 02/23/17 21:08 Dose: 1 tab Polyethylene Glycol (Miralax) 17 gm PO PRN PRN PRN Reason: Constipation Potassium Chloride (K-Dur) 10 meq PO BIDWM [facility] Last Admin: 02/23/17 09:56 Dose: 10 meq Ranitidine HCl (Zantac) 75 mg PO BID [facility] Last Admin: 02/24/17 08:36 Dose: 75 mg Risperidone (Risperdal) 0.25 mg PO DAILY [facility] Last Admin: 02/24/17 08:36 Dose: 0.25 mg Risperidone (Risperdal) 1 mg PO DAILY@1700 [facility] Subjective: Patient seen and chart examined. Nursing reports that patient often gets raved up in the evenings and she required PRN Haloperidol 0.5mg PO at about 1800 yesterday. There is also report of patient having low BP in the mornings but the BP often gets back up later in the day. The hospitalist group has been adjusting her BP medications. She is only oriented to self. She denies any pain and voices no concerns at this time. Tolerating meds. The plan today will be to give Risperidone 1mg in the PM and monitor behavior changes. Patient's BUN continues to be elevated at 55 today, but she has normal sodium. Start Time: 10:40 Stop Time: 11:00 Mental Status Exam Vitals: Last Vital Signs Temp 98.4 F 02/24/17 08:00 Pulse 65 02/24/17 08:00 Resp 14 02/24/17 08:00 BP 105/57 02/24/17 09:32 Pulse Ox 100 02/24/17 08:00 Height: 1.6 m Weight: 55.77 kg - Mental Status Exam Muscle Strength/Tone: Normal Dressing: Casual Grooming: Good Attitude: Cooperative Motor Activity: Retardation Eye Contact: Good Speech: Normal Volume: Soft Rhythm: Appropriate Rhythm, Perseveration (about going home) Orientation: Disoriented to time, Disoriented to place, Oriented to person Mood: Other ("okay") Rate of Thoughts: Delayed Thought Organization: [place] Associations: Illogical Abstract Reasoning: Poor abstract reasoning Thought Content: Delusions Perception/Psychotic: Hx psychosis, not current Language: Naming Impaired Memory: Poor-immediate Suicidal Ideation: None Homicidal Ideation: None Insight: Poor Judgement: Poor - Laboratory Result Diagrams: 02/24/17 04:41 02/24/17 04:41 Laboratory Results - last 24 hr 02/23/17 02/23/17 02/24/17 17:53 20:09 04:41 WBC 8.1 RBC 3.68 L Hgb 11.5 L Hct 35.0 L MCV 95.1 MCH 31.3 MCHC 32.9 RDW Std Deviation 43.9 Plt Count 274 MPV 9.8 Immature Gran % (Auto) 0.4 Neut % (Auto) 58.4 Lymph % (Auto) 33.1 [place] % (Auto) 5.8 Eos % (Auto) 1.7 Baso % (Auto) 0.6 Neut # 4.7 Lymph # 2.7 [place] # 0.5 Eos # 0.1 Baso # 0.1 Abs Immat Gran (auto) 0.03 Turbidity Sodium Potassium Chloride Carbon Dioxide Anion Gap BUN Creatinine GFR Calculation BUN/Creatinine Ratio Glucose Glucometer 157 169 Calculated Osmolality Calcium Icterus Index Specimen Hemolysis 02/24/17 02/24/17 02/24/17 04:41 04:41 11:37 WBC RBC Hgb Hct MCV MCH MCHC RDW Std Deviation Plt Count MPV Immature Gran % (Auto) Neut % (Auto) Lymph % (Auto) [place] % (Auto) Eos % (Auto) Baso % (Auto) Neut # Lymph # [place] # Eos # Baso # Abs Immat Gran (auto) Turbidity < 20 Sodium 134 Potassium 4.1 Chloride 98 Carbon Dioxide 28 Anion Gap 8 BUN 55.0 H* Creatinine 1.1 GFR Calculation 65 BUN/Creatinine Ratio 50 H Glucose 111 H Glucometer 104 143 Calculated Osmolality 274 Calcium 9.6 Icterus Index < 2 Specimen Hemolysis 17 Assessment and Plan (1) Major neurocognitive disorder Problem details: with behavioral disturbance Current visit: Yes Status: Acute (2) Delirium Problem details: Due to UTI Current visit: Yes Status: Acute (3) UTI (urinary tract infection), bacterial Current visit: Yes Status: Acute (4) Atrial fibrillation Current visit: Yes Status: Chronic (5) CAD (coronary artery disease) Current visit: Yes Status: Chronic (6) DM2 (diabetes mellitus, type 2) Current visit: Yes Status: Chronic (7) HTN (hypertension) Current visit: Yes Status: Chronic (8) Hypothyroid Current visit: Yes Status: Chronic Risperidone 1mg q PM and continue Risperidone 0.25mg po q daily. Hospital Course Summary Disclaimer: The visit summary below is not to be considered part of the above Progress Note. Hospital Course: 02/16/17 10:03 *Cognitive/Behavioral Changes- Per attending. Will stop Cipro, as this can worsen delirium in the elderly. Ok for unit activities. Recent anesthesia for PPM. *UTI- Significant pyuria on recent UA. Recheck UA now. Stop Cipro and reassess once urine is back. *HTN- Continue metoprolol, Bumex. She is on Midodrine- suspect some history of orthostasis. Monitor BP. *Peripheral edema- Given Bumex dosing, suspect HF. Try and get echo from [facility]. *Hypokalemia- Repeat labs now. May need to increase KCL dosing. *Leukopenia- She is on Femara. No hx of cancer is on record. Will need to clarify with family. *Anemia- normocytic. Assess B12, Folate. *DM2-Continue metformin. A1c is OK. Monitor accuchecks. *Hypothyroid- TSH high normal. We could potentially increase dose a bit. Monitor progress for now. *Atrial Fib- s/p PPM Rate control. No anticoagulation due to fall risk. *Full Code 02/17/17 09:41 Hypomagnesemia -improving; up to 1.5 -recheck in am -K stable at 3.9 UTI -r/o; UA neg. -Cipro dc'd DM2 -well controlled and normal A1c -Metformin dc'd -continue to monitor BG to assess trends since metformin was dc'd Suspect CHF -records being requested from [facility] -continue Bumex & metoprolol -EKG reviewed - paced rhythm -elevate legs when at rest ?Orthostasis -midodrine on hold -monitor orthostatics BID Psych -head CT shows moderate atrophy and chronic b/l cerebellar infarcts -observe for gait instability -RPR, lippid panel, T3, T4 pending -B12 523 02/20/17 18:24 Increase Risperdal to 0.5mg PO QHS 02/22/17 Hyponatremia- sodium yesterday was 133. We will recheck this tomorrow DM2 Continue to monitor blood sugars carefully. Sliding scale NovoLog as needed, and metformin 500 twice a day Hemoglobin A1c was found to be 6.6. CHF/orthostasis Continue Bumex & metoprolol. Blood pressure appears to be well controlled Continue on Midrine 3 times a day Psych per Dr Samson 02/22/17 11:13 Continue current care 02/23/17 10:59 Continue current care
[2017-02-24] MEDS: RisperiDONE 1 MG TABLET PO SCH (17:15)
[2017-02-24] MEDS: Oxycodone/Acetaminophen 5/325 1 TAB PO SCH ×2 (20:08→21:00)
[2017-02-24] MEDS: INSULIN ASPART 100unit/ml INJECTION SQ PRN (20:15)
[2017-02-25] MEDS: LEVOTHYROXINE 50 MCG TABLET PO SCH (06:33)
[2017-02-25] MEDS: CLOPIDOGREL 75 MG TABLET PO SCH (08:00)
[2017-02-25] MEDS: RANITIDINE 150 MG TABLET PO SCH ×2 (08:01→19:41)
[2017-02-25] MEDS: ACETAMINOPHEN 325 MG TABLET PO PRN (08:01)
[2017-02-25] MEDS: MIDODRINE 5 MG TABLET PO SCH ×3 (08:02→19:40)
[2017-02-25] MEDS: ASPIRIN *EC* 81 MG TABLET PO SCH (08:02)
[2017-02-25] MEDS: METFORMIN 500 MG TABLET PO SCH ×2 (08:02→17:17)
[2017-02-25] MEDS: LETROZOLE 2.5 MG TABLET PO SCH (08:02)
--- NOTE | 2017-02-25 13:51 | Progress Note ---
Subjective: Nury is seen today in follow up for her behavioral changes. She is seen while sitting in her room, looking out the window at the [place] and has a pleasant disposition. She denies any new complaints including chest pain, shortness of breath, abdominal pain, nausea, vomiting or dysuria. 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 Labs were completed on 02/24 and were unremarkable with the exception of mild anemia with hemoglobin at 11.5. Her appetite has been good. Review of medical records reveal no documented BM in 5 days, though patient thinks she has had one more recently. Objective Vital signs: Temperature 96.8 F 02/25/17 07:21 Pulse Rate 69 02/25/17 07:21 Respiratory Rate 16 02/25/17 07:21 Blood Pressure 117/66 02/25/17 07:21 Pulse Oximetry 100 02/25/17 07:21 Oxygen Delivery Method Room Air Fraction of Inspired Oxygen 21 Weight: 122 lb 15.229 oz - Constitutional Present: no acute distress, well nourished, well developed, cooperative - Routine HEENT Exam Head: Present: normocephalic, atraumatic Eye: Present: PERRL. Absent: conjunctival icterus, scleral injection ENT: Present: mucous membranes moist - Routine Respiratory Exam Present: CTA bilaterally. Absent: accessory muscle use, dyspnea, rales, rhonchi , stridor, wheezes, crackles - Routine Cardiovascular Exam Present: RRR, S1, S2 - Routine Abdominal Exam Present: soft, normoactive bowel sounds, non distended, non tender - Routine Extremities Exam Present: edema (trace), non tender, full ROM, pulses intact. Absent: calf tenderness - Routine Back/Spine/Pelvis Exam Back/Spine: Present: full ROM. Absent: vertebral tenderness - Routine Musculoskeletal Exam Musculoskeletal: Present: normal strength, moving extremities well - Routine Skin Exam Present: intact, dry, warm. Absent: erythema, jaundice - Routine Neurological Exam Present: alert, moving all extremities, hearing grossly intact, normal speech - Routine Psychiatric Exam Present: normal affect, normal thought process, cooperative Results - Labs CBC & Chem 7: 02/24/17 04:41 02/24/17 04:41 Assessment and Plan (1) Cognitive and behavioral changes Current visit: Yes Status: Acute (2) UTI (urinary tract infection), bacterial Current visit: Yes Status: Acute (3) HTN (hypertension) Current visit: Yes Status: Chronic (4) CAD (coronary artery disease) Current visit: Yes Status: Chronic (5) Chronic edema Current visit: Yes Status: Chronic (6) Hypokalemia Current visit: Yes Status: Acute (7) DM2 (diabetes mellitus, type 2) Current visit: Yes Status: Chronic (8) Hypothyroid Current visit: Yes Status: Chronic (9) Atrial fibrillation Current visit: Yes Status: Chronic 02/16/17 09:54 s/p PPM December 2016- [facility]. Request records for Echo, Cardiac records (None at [facility]) (10) Leukopenia Current visit: Yes Status: Acute (11) Normocytic normochromic anemia Current visit: Yes Status: Chronic (12) IBS (irritable bowel syndrome) Current visit: Yes Status: Acute Assessment and Plan: 02/25/17 Hyponatremia- resolved. Sodium on 02/24 was 134. We will recheck labs on 02/28. DM2 Continue to monitor blood sugars carefully. Controlled. Sliding scale NovoLog as needed, and metformin 500 twice a day Hemoglobin A1c was found to be 6.6. CHF/orthostasis Continue Bumex & metoprolol. Blood pressure appears to be well controlled Continue on Midrine 3 times a day. Psych Continue to provide safe and supportive environment. per psych team. Anticipate discharge in near future. Chest wall pain, chronic. Recommend follow up as out patient with PCP and chief of anesthesiology. Pacemaker site is clean, dry without swelling or erythema. N/V intact. Anemia, mild. Hgb 11.5 on 02/24. Follow as out patient and monitor closely for signs of bleeding. Sepsis Assessment - Evaluation Sepsis screening result: No Definite Risk Hospital Course Summary Disclaimer: The visit summary below is not to be considered part of the above Progress Note. Hospital Course: 02/16/17 10:03 *Cognitive/Behavioral Changes- Per attending. Will stop Cipro, as this can worsen delirium in the elderly. Ok for unit activities. Recent anesthesia for PPM. *UTI- Significant pyuria on recent UA. Recheck UA now. Stop Cipro and reassess once urine is back. *HTN- Continue metoprolol, Bumex. She is on Midodrine- suspect some history of orthostasis. Monitor BP. *Peripheral edema- Given Bumex dosing, suspect HF. Try and get echo from [facility]. *Hypokalemia- Repeat labs now. May need to increase KCL dosing. *Leukopenia- She is on Femara. No hx of cancer is on record. Will need to clarify with family. *Anemia- normocytic. Assess B12, Folate. *DM2-Continue metformin. A1c is OK. Monitor accuchecks. *Hypothyroid- TSH high normal. We could potentially increase dose a bit. Monitor progress for now. *Atrial Fib- s/p PPM Rate control. No anticoagulation due to fall risk. *Full Code 02/17/17 09:41 Hypomagnesemia -improving; up to 1.5 -recheck in am -K stable at 3.9 UTI -r/o; UA neg. -Cipro dc'd DM2 -well controlled and normal A1c -Metformin dc'd -continue to monitor BG to assess trends since metformin was dc'd Suspect CHF -records being requested from [facility] -continue Bumex & metoprolol -EKG reviewed - paced rhythm -elevate legs when at rest ?Orthostasis -midodrine on hold -monitor orthostatics BID Psych -head CT shows moderate atrophy and chronic b/l cerebellar infarcts -observe for gait instability -RPR, lippid panel, T3, T4 pending -B12 523 02/20/17 18:24 Increase Risperdal to 0.5mg PO QHS 02/22/17 Hyponatremia- sodium yesterday was 133. We will recheck this tomorrow DM2 Continue to monitor blood sugars carefully. Sliding scale NovoLog as needed, and metformin 500 twice a day Hemoglobin A1c was found to be 6.6. CHF/orthostasis Continue Bumex & metoprolol. Blood pressure appears to be well controlled Continue on Midrine 3 times a day Psych per Dr Samson 02/22/17 11:13 Continue current care 02/23/17 10:59 Continue current care 02/25/17 13:56 02/25/17 Hyponatremia- resolved. Sodium on 02/24 was 134. We will recheck labs on 02/28. DM2 Continue to monitor blood sugars carefully. Controlled. Sliding scale NovoLog as needed, and metformin 500 twice a day Hemoglobin A1c was found to be 6.6. CHF/orthostasis Continue Bumex & metoprolol. Blood pressure appears to be well controlled Continue on Midrine 3 times a day. Psych Continue to provide safe and supportive environment. per psych team. Anticipate discharge in near future. Chest wall pain, chronic. Recommend follow up as out patient with PCP and chief of anesthesiology. Pacemaker site is clean, dry without swelling or erythema. N/V intact. Anemia, mild. Hgb 11.5 on 02/24. Follow as out patient and monitor closely for signs of bleeding.
--- NOTE | 2017-02-25 15:44 | Neuropsych Progress Note ---
[facility] Subjective Date: 02/25/17 - Sujective/Severity of Illness Medications: Acetaminophen (Tylenol) 325 - 650 mg PO Q5H PRN PRN Reason: Discomfort Last Admin: 02/25/17 08:01 Dose: 650 mg Al Hydroxide/Mg Hydroxide (Maalox Plus) 30 ml PO PRN PRN PRN Reason: Indigestion Aspirin (Ecotrin) 81 mg PO DAILY [facility] Last Admin: 02/25/17 08:02 Dose: 81 mg Bumetanide (Bumex) 2 mg PO DAILY [facility] Last Admin: 02/23/17 09:57 Dose: Not Given Cholecalciferol (Vit. D-3) 1,000 unit PO DAILY [facility] Last Admin: 02/25/17 08:02 Dose: 1,000 unit Clopidogrel Bisulfate (Plavix) 75 mg PO DAILY [facility] Last Admin: 02/25/17 08:00 Dose: 75 mg Docusate Sodium (Colace) 100 mg PO DAILY [facility] Haloperidol (Haldol) 0.5 mg PO Q6H PRN PRN Reason: Extreme agitation Last Admin: 02/23/17 18:00 Dose: 0.5 mg Haloperidol Decanoate (Haldol Liquid) 0.5 mg PO Q6H PRN Last Admin: 02/21/17 13:30 Dose: 0.5 mg Haloperidol Lactate (Haldol) 0.5 mg IM Q6H PRN PRN Reason: Extreme agitation Insulin Aspart (Novolog) 0 unit SQ SS PRN; Protocol PRN Reason: Hyperglycemia Last Admin: 02/24/17 20:15 Dose: 2 unit Letrozole (Femara) 2.5 mg PO DAILY [facility] Last Admin: 02/25/17 08:02 Dose: 2.5 mg Levothyroxine Sodium (Synthroid) 50 mcg PO ACB [facility] Last Admin: 02/25/17 06:33 Dose: 50 mcg Loperamide HCl (Imodium) 2 mg PO DAILY PRN PRN Reason: DIARRHEA, LOOSE STOOLS Lorazepam (Ativan Inj) 0.5 mg IM Q6H PRN PRN Reason: Extreme agitation Lorazepam (Ativan) 0.5 mg PO Q6H PRN PRN Reason: Extreme agitation Lorazepam (Ativan Intensol) 0.5 mg PO Q6H PRN Last Admin: 02/16/17 17:13 Dose: 0.5 mg Lubiprostone (Amitiza) 8 mcg PO PRN PRN PRN Reason: FOR IBS with CONSTIPATION Metformin HCl (Glucophage) 500 mg PO BIDWM [facility] Last Admin: 02/25/17 08:02 Dose: 500 mg Metoprolol Tartrate (Lopressor) 12.5 mg PO BIDWM [facility] Last Admin: 02/25/17 08:02 Dose: 12.5 mg Midodrine (Proamatine) 5 mg PO TID [facility] Last Admin: 02/25/17 14:31 Dose: 5 mg Oxycodone/Acetaminophen (Percocet 5/325) 1 tab PO HS [facility] Last Admin: 02/24/17 21:00 Dose: Not Given Polyethylene Glycol (Miralax) 17 gm PO PRN PRN PRN Reason: Constipation Potassium Chloride (K-Dur) 10 meq PO BIDWM [facility] Last Admin: 02/23/17 09:56 Dose: 10 meq Ranitidine HCl (Zantac) 75 mg PO BID [facility] Last Admin: 02/25/17 08:01 Dose: 75 mg Risperidone (Risperdal) 0.25 mg PO DAILY [facility] Last Admin: 02/25/17 08:02 Dose: 0.25 mg Risperidone (Risperdal) 1 mg PO DAILY@1700 [facility] Last Admin: 02/24/17 17:15 Dose: 1 mg Subjective: Patient seen and chart examined. Nursing reports that patient looks better and has not made any paranoid statement lately. She was seen to be alert and oriented to her person, but disoriented to place and time. She complains of left arm pain and was reportedly given [place] yesterday. Otherwise, she has no new problem. Her appetite has been good and there has not been any behavioral problem. She is tolerating her medications and there is no acute or chronic EPS. Will obtain an EKG given recent anti-psychotic use. Start Time: 12:15 Stop Time: 12:30 Mental Status Exam Vitals: Last Vital Signs Temp 96.8 F 02/25/17 07:21 Pulse 69 02/25/17 07:21 Resp 16 02/25/17 07:21 BP 117/66 02/25/17 07:21 Pulse Ox 100 02/25/17 07:21 Height: 1.6 m Weight: 55.77 kg - Mental Status Exam Muscle Strength/Tone: Normal Dressing: Casual Grooming: Good Attitude: Cooperative Motor Activity: Retardation Eye Contact: Good Speech: Normal Volume: Soft Rhythm: Appropriate Rhythm, Perseveration Orientation: Disoriented to time, Disoriented to place, Oriented to person Mood: Other ("okay") Rate of Thoughts: Delayed Thought Organization: [place] Associations: Illogical Abstract Reasoning: Poor abstract reasoning Thought Content: Delusions Perception/Psychotic: Hx psychosis, 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 Language: Naming Impaired Memory: Poor-immediate Suicidal Ideation: None Homicidal Ideation: None Insight: Poor Judgement: Poor - Laboratory Result Diagrams: 02/24/17 04:41 02/24/17 04:41 Laboratory Results - last 24 hr 02/24/17 02/24/17 02/25/17 16:53 20:04 04:42 Glucometer 152 210 100 02/25/17 11:37 Glucometer 164 Assessment and Plan (1) Major neurocognitive disorder Problem details: with behavioral disturbance Current visit: Yes Status: Acute (2) Delirium Problem details: Due to UTI Current visit: Yes Status: Acute (3) UTI (urinary tract infection), bacterial Current visit: Yes Status: Acute (4) Atrial fibrillation Current visit: Yes Status: Chronic (5) CAD (coronary artery disease) Current visit: Yes Status: Chronic (6) DM2 (diabetes mellitus, type 2) Current visit: Yes Status: Chronic (7) HTN (hypertension) Current visit: Yes Status: Chronic (8) Hypothyroid Current visit: Yes Status: Chronic Cont current treatment. Obtain a 12 lead EKG. Anticipate discharge early next week. Hospital Course Summary Disclaimer: The visit summary below is not to be considered part of the above Progress Note. Hospital Course: 02/16/17 10:03 *Cognitive/Behavioral Changes- Per attending. Will stop Cipro, as this can worsen delirium in the elderly. Ok for unit activities. Recent anesthesia for PPM. *UTI- Significant pyuria on recent UA. Recheck UA now. Stop Cipro and reassess once urine is back. *HTN- Continue metoprolol, Bumex. She is on Midodrine- suspect some history of orthostasis. Monitor BP. *Peripheral edema- Given Bumex dosing, suspect HF. Try and get echo from [facility]. *Hypokalemia- Repeat labs now. May need to increase KCL dosing. *Leukopenia- She is on Femara. No hx of cancer is on record. Will need to clarify with family. *Anemia- normocytic. Assess B12, Folate. *DM2-Continue metformin. A1c is OK. Monitor accuchecks. *Hypothyroid- TSH high normal. We could potentially increase dose a bit. Monitor progress for now. *Atrial Fib- s/p PPM Rate control. No anticoagulation due to fall risk. *Full Code 02/17/17 09:41 Hypomagnesemia -improving; up to 1.5 -recheck in am -K stable at 3.9 UTI -r/o; UA neg. -Cipro dc'd DM2 -well controlled and normal A1c -Metformin dc'd -continue to monitor BG to assess trends since metformin was dc'd Suspect CHF -records being requested from [facility] -continue Bumex & metoprolol -EKG reviewed - paced rhythm -elevate legs when at rest ?Orthostasis -midodrine on hold -monitor orthostatics BID Psych -head CT shows moderate atrophy and chronic b/l cerebellar infarcts -observe for gait instability -RPR, lippid panel, T3, T4 pending -B12 523 02/20/17 18:24 Increase Risperdal to 0.5mg PO QHS 02/22/17 Hyponatremia- sodium yesterday was 133. We will recheck this tomorrow DM2 Continue to monitor blood sugars carefully. Sliding scale NovoLog as needed, and metformin 500 twice a day Hemoglobin A1c was found to be 6.6. CHF/orthostasis Continue Bumex & metoprolol. Blood pressure appears to be well controlled Continue on Midrine 3 times a day Psych per Dr Samson 02/22/17 11:13 Continue current care 02/23/17 10:59 Continue current care 02/25/17 13:56 02/25/17 Hyponatremia- resolved. Sodium on 02/24 was 134. We will recheck labs on 02/28. DM2 Continue to monitor blood sugars carefully. Controlled. Sliding scale NovoLog as needed, and metformin 500 twice a day Hemoglobin A1c was found to be 6.6. CHF/orthostasis Continue Bumex & metoprolol. Blood pressure appears to be well controlled Continue on Midrine 3 times a day. Psych Continue to provide safe and supportive environment. per psych team. Anticipate discharge in near future. Chest wall pain, chronic. Recommend follow up as out patient with PCP and cargoman. Pacemaker site is clean, dry without swelling or erythema. N/V intact. Anemia, mild. Hgb 11.5 on 02/24. Follow as out patient and monitor closely for signs of bleeding.
[2017-02-25] MEDS: RisperiDONE 1 MG TABLET PO SCH (17:17)
[2017-02-25] MEDS: Oxycodone/Acetaminophen 5/325 1 TAB PO SCH (19:42)
[2017-02-25] MEDS: INSULIN ASPART 100unit/ml INJECTION SQ PRN (21:10)
[2017-02-26] MEDS: Oxycodone/Acetaminophen 5/325 1 TAB PO SCH ×3 (01:13→21:48)
[2017-02-26] MEDS: RANITIDINE 150 MG TABLET PO SCH ×4 (01:13→21:48)
[2017-02-26] MEDS: MIDODRINE 5 MG TABLET PO SCH ×5 (01:13→21:47)
[2017-02-26] MEDS: LEVOTHYROXINE 50 MCG TABLET PO SCH (06:27)
[2017-02-26] MEDS: ACETAMINOPHEN 325 MG TABLET PO PRN (08:10)
[2017-02-26] MEDS: DOCUSATE SODIUM 100 MG CAPSULE PO SCH (08:10)
[2017-02-26] MEDS: LETROZOLE 2.5 MG TABLET PO SCH (08:11)
[2017-02-26] MEDS: METFORMIN 500 MG TABLET PO SCH ×2 (08:11→17:03)
[2017-02-26] MEDS: CLOPIDOGREL 75 MG TABLET PO SCH (08:11)
[2017-02-26] MEDS: ASPIRIN *EC* 81 MG TABLET PO SCH (08:11)
[2017-02-26] MEDS: INSULIN ASPART 100unit/ml INJECTION SQ PRN ×2 (11:29→20:52)
[2017-02-26] MEDS: RisperiDONE 1 MG TABLET PO SCH (17:03)
--- NOTE | 2017-02-26 20:23 | Neuropsych Progress Note ---
[facility] Subjective Date: 02/26/17 - Sujective/Severity of Illness Medications: Acetaminophen (Tylenol) 325 - 650 mg PO Q5H PRN PRN Reason: Discomfort Last Admin: 02/26/17 08:10 Dose: 650 mg Al Hydroxide/Mg Hydroxide (Maalox Plus) 30 ml PO PRN PRN PRN Reason: Indigestion Last Admin: 02/25/17 16:15 Dose: 30 ml Aspirin (Ecotrin) 81 mg PO DAILY [facility] Last Admin: 02/26/17 08:11 Dose: 81 mg Bumetanide (Bumex) 2 mg PO DAILY [facility] Last Admin: 02/23/17 09:57 Dose: Not Given Cholecalciferol (Vit. D-3) 1,000 unit PO DAILY [facility] Last Admin: 02/26/17 08:12 Dose: 1,000 unit Clopidogrel Bisulfate (Plavix) 75 mg PO DAILY [facility] Last Admin: 02/26/17 08:11 Dose: 75 mg Docusate Sodium (Colace) 100 mg PO DAILY [facility] Last Admin: 02/26/17 08:10 Dose: 100 mg Haloperidol (Haldol) 0.5 mg PO Q6H PRN PRN Reason: Extreme agitation Last Admin: 02/23/17 18:00 Dose: 0.5 mg Haloperidol Decanoate (Haldol Liquid) 0.5 mg PO Q6H PRN Last Admin: 02/21/17 13:30 Dose: 0.5 mg Haloperidol Lactate (Haldol) 0.5 mg IM Q6H PRN PRN Reason: Extreme agitation Insulin Aspart (Novolog) 0 unit SQ SS PRN; Protocol PRN Reason: Hyperglycemia Last Admin: 02/26/17 11:29 Dose: 1 unit Letrozole (Femara) 2.5 mg PO DAILY [facility] Last Admin: 02/26/17 08:11 Dose: 2.5 mg Levothyroxine Sodium (Synthroid) 50 mcg PO ACB [facility] Last Admin: 02/26/17 06:27 Dose: Not Given Loperamide HCl (Imodium) 2 mg PO DAILY PRN PRN Reason: DIARRHEA, LOOSE STOOLS Lorazepam (Ativan Inj) 0.5 mg IM Q6H PRN PRN Reason: Extreme agitation Lorazepam (Ativan) 0.5 mg PO Q6H PRN PRN Reason: Extreme agitation Lorazepam (Ativan Intensol) 0.5 mg PO Q6H PRN Last Admin: 02/16/17 17:13 Dose: 0.5 mg Lubiprostone (Amitiza) 8 mcg PO PRN PRN PRN Reason: FOR IBS with CONSTIPATION Metformin HCl (Glucophage) 500 mg PO BIDWM [facility] Last Admin: 02/26/17 17:03 Dose: 500 mg Metoprolol Tartrate (Lopressor) 12.5 mg PO BIDWM [facility] Last Admin: 02/26/17 17:03 Dose: 12.5 mg Midodrine (Proamatine) 5 mg PO TID [facility] Last Admin: 02/26/17 19:50 Dose: 5 mg Oxycodone/Acetaminophen (Percocet 5/325) 1 tab PO HS [facility] Last Admin: 02/26/17 19:50 Dose: 1 tab Polyethylene Glycol (Miralax) 17 gm PO PRN PRN PRN Reason: Constipation Potassium Chloride (K-Dur) 10 meq PO BIDWM [facility] Last Admin: 02/23/17 09:56 Dose: 10 meq Ranitidine HCl (Zantac) 75 mg PO BID [facility] Last Admin: 02/26/17 19:50 Dose: 75 mg Risperidone (Risperdal) 0.25 mg PO DAILY [facility] Last Admin: 02/26/17 08:12 Dose: 0.25 mg Risperidone (Risperdal) 1 mg PO DAILY@1700 [facility] Last Admin: 02/26/17 17:03 Dose: 1 mg Subjective: Patient seen and chart examined. Nursing reports that patient looks better and has not made any paranoid statement lately. She was seen to be alert and oriented to her person, but disoriented to place and time.There is concern about her elevated BUN and according to the daughter amiodarone and midodrine were recently started on patient in the months prior to admission. Patient continues to have significant cognitive impairment with impaired memory and poor executive function Her appetite has been good and there has not been any behavioral problem. She is tolerating her medications and there is no acute or chronic EPS. EKG done on 02/25/17 showed electronic ventricular pacemaker and her Qtc was 463. Start Time: 17:45 Stop Time: 18:00 Mental Status Exam Vitals: Last Vital Signs Temp 96.2 F L 02/26/17 19:24 Pulse 104 H 02/26/17 19:24 Resp 18 02/26/17 19:24 BP 113/61 02/26/17 19:24 Pulse Ox 97 02/26/17 19:24 Height: 1.6 m Weight: 55.77 kg - Mental Status Exam Muscle Strength/Tone: Normal Dressing: Casual Grooming: Good Attitude: Cooperative Motor Activity: Normal Eye Contact: Good Speech: Normal Volume: Soft Rhythm: Appropriate Rhythm, Perseveration Orientation: Disoriented to time, Disoriented to place, Oriented to person Mood: Other ("fine") Rate of Thoughts: Delayed Thought Organization: [place] Associations: Illogical Abstract Reasoning: Poor abstract reasoning Thought Content: Delusions Perception/Psychotic: Hx psychosis, 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 Language: Naming Impaired Memory: Poor-immediate Suicidal Ideation: None Homicidal Ideation: None Insight: Poor Judgement: Poor - Laboratory Result Diagrams: 02/24/17 04:41 02/24/17 04:41 Laboratory Results - last 24 hr 02/26/17 02/26/17 02/26/17 05:06 11:24 17:16 Glucometer 112 164 Creatine Kinase 36 L 02/26/17 17:28 Glucometer 142 Creatine Kinase Assessment and Plan (1) Major neurocognitive disorder Problem details: with behavioral disturbance Current visit: Yes Status: Acute (2) Delirium Problem details: Due to UTI Current visit: Yes Status: Acute (3) UTI (urinary tract infection), bacterial Current visit: Yes Status: Acute (4) Atrial fibrillation Current visit: Yes Status: Chronic (5) CAD (coronary artery disease) Current visit: Yes Status: Chronic (6) DM2 (diabetes mellitus, type 2) Current visit: Yes Status: Chronic (7) HTN (hypertension) Current visit: Yes Status: Chronic (8) Hypothyroid Current visit: Yes Status: Chronic CPK today showed a value of 26. Will discuss with the hospitalist about possible causes of elevated BUN. Hospital Course Summary Disclaimer: The visit summary below is not to be considered part of the above Progress Note. Hospital Course: 02/16/17 10:03 *Cognitive/Behavioral Changes- Per attending. Will stop Cipro, as this can worsen delirium in the elderly. Ok for unit activities. Recent anesthesia for PPM. *UTI- Significant pyuria on recent UA. Recheck UA now. Stop Cipro and reassess once urine is back. *HTN- Continue metoprolol, Bumex. She is on Midodrine- suspect some history of orthostasis. Monitor BP. *Peripheral edema- Given Bumex dosing, suspect HF. Try and get echo from [facility]. *Hypokalemia- Repeat labs now. May need to increase KCL dosing. *Leukopenia- She is on Femara. No hx of cancer is on record. Will need to clarify with family. *Anemia- normocytic. Assess B12, Folate. *DM2-Continue metformin. A1c is OK. Monitor accuchecks. *Hypothyroid- TSH high normal. We could potentially increase dose a bit. Monitor progress for now. *Atrial Fib- s/p PPM Rate control. No anticoagulation due to fall risk. *Full Code 02/17/17 09:41 Hypomagnesemia -improving; up to 1.5 -recheck in am -K stable at 3.9 UTI -r/o; UA neg. -Cipro dc'd DM2 -well controlled and normal A1c -Metformin dc'd -continue to monitor BG to assess trends since metformin was dc'd Suspect CHF -records being requested from [facility] -continue Bumex & metoprolol -EKG reviewed - paced rhythm -elevate legs when at rest ?Orthostasis -midodrine on hold -monitor orthostatics BID Psych -head CT shows moderate atrophy and chronic b/l cerebellar infarcts -observe for gait instability -RPR, lippid panel, T3, T4 pending -B12 523 02/20/17 18:24 Increase Risperdal to 0.5mg PO QHS 02/22/17 Hyponatremia- sodium yesterday was 133. We will recheck this tomorrow DM2 Continue to monitor blood sugars carefully. Sliding scale NovoLog as needed, and metformin 500 twice a day Hemoglobin A1c was found to be 6.6. CHF/orthostasis Continue Bumex & metoprolol. Blood pressure appears to be well controlled Continue on Midrine 3 times a day Psych per Dr Samson 02/22/17 11:13 Continue current care 02/23/17 10:59 Continue current care 02/25/17 13:56 02/25/17 Hyponatremia- resolved. Sodium on 02/24 was 134. We will recheck labs on 02/28. DM2 Continue to monitor blood sugars carefully. Controlled. Sliding scale NovoLog as needed, and metformin 500 twice a day Hemoglobin A1c was found to be 6.6. CHF/orthostasis Continue Bumex & metoprolol. Blood pressure appears to be well controlled Continue on Midrine 3 times a day. Psych Continue to provide safe and supportive environment. per psych team. Anticipate discharge in near future. Chest wall pain, chronic. Recommend follow up as out patient with PCP and financial assistance specialist. Pacemaker site is clean, dry without swelling or erythema. N/V intact. Anemia, mild. Hgb 11.5 on 02/24. Follow as out patient and monitor closely for signs of bleeding. 02/26/17 20:27: Cont current treatment and discuss with the hospitalist about the causes of elevated BUN
[2017-02-27] MEDS: DOCUSATE SODIUM 100 MG CAPSULE PO SCH (09:04)
[2017-02-27] MEDS: LETROZOLE 2.5 MG TABLET PO SCH (09:04)
[2017-02-27] MEDS: MIDODRINE 5 MG TABLET PO SCH ×3 (09:05→20:31)
[2017-02-27] MEDS: ASPIRIN *EC* 81 MG TABLET PO SCH (09:05)
[2017-02-27] MEDS: CLOPIDOGREL 75 MG TABLET PO SCH (09:05)
[2017-02-27] MEDS: RANITIDINE 150 MG TABLET PO SCH ×2 (09:06→20:30)
[2017-02-27] MEDS: METFORMIN 500 MG TABLET PO SCH ×2 (09:08→17:18)
[2017-02-27] MEDS: LEVOTHYROXINE 50 MCG TABLET PO SCH (10:06)
[2017-02-27] MEDS: RisperiDONE 1 MG TABLET PO SCH (17:18)
[2017-02-27] MEDS: INSULIN ASPART 100unit/ml INJECTION SQ PRN (17:28)
--- NOTE | 2017-02-27 17:38 | Neuropsych Progress Note ---
[facility] Subjective Date: 02/27/17 - Sujective/Severity of Illness Medications: Acetaminophen (Tylenol) 325 - 650 mg PO Q5H PRN PRN Reason: Discomfort Last Admin: 02/26/17 08:10 Dose: 650 mg Al Hydroxide/Mg Hydroxide (Maalox Plus) 30 ml PO PRN PRN PRN Reason: Indigestion Last Admin: 02/25/17 16:15 Dose: 30 ml Aspirin (Ecotrin) 81 mg PO DAILY [facility] Last Admin: 02/27/17 09:05 Dose: 81 mg Bumetanide (Bumex) 2 mg PO DAILY [facility] Last Admin: 02/23/17 09:57 Dose: Not Given Cholecalciferol (Vit. D-3) 1,000 unit PO DAILY [facility] Last Admin: 02/27/17 09:07 Dose: 1,000 unit Clopidogrel Bisulfate (Plavix) 75 mg PO DAILY [facility] Last Admin: 02/27/17 09:05 Dose: 75 mg Docusate Sodium (Colace) 100 mg PO DAILY [facility] Last Admin: 02/27/17 09:04 Dose: 100 mg Haloperidol (Haldol) 0.5 mg PO Q6H PRN PRN Reason: Extreme agitation Last Admin: 02/23/17 18:00 Dose: 0.5 mg Haloperidol Decanoate (Haldol Liquid) 0.5 mg PO Q6H PRN Last Admin: 02/21/17 13:30 Dose: 0.5 mg Haloperidol Lactate (Haldol) 0.5 mg IM Q6H PRN PRN Reason: Extreme agitation Insulin Aspart (Novolog) 0 unit SQ SS PRN; Protocol PRN Reason: Hyperglycemia Last Admin: 02/27/17 17:28 Dose: 1 unit Letrozole (Femara) 2.5 mg PO DAILY [facility] Last Admin: 02/27/17 09:04 Dose: 2.5 mg Levothyroxine Sodium (Synthroid) 50 mcg PO ACB [facility] Last Admin: 02/27/17 10:06 Dose: 50 mcg Loperamide HCl (Imodium) 2 mg PO DAILY PRN PRN Reason: DIARRHEA, LOOSE STOOLS Lorazepam (Ativan Inj) 0.5 mg IM Q6H PRN PRN Reason: Extreme agitation Lorazepam (Ativan) 0.5 mg PO Q6H PRN PRN Reason: Extreme agitation Lorazepam (Ativan Intensol) 0.5 mg PO Q6H PRN Last Admin: 02/16/17 17:13 Dose: 0.5 mg Lubiprostone (Amitiza) 8 mcg PO PRN PRN PRN Reason: FOR IBS with CONSTIPATION Metformin HCl (Glucophage) 500 mg PO BIDWM [facility] Last Admin: 02/27/17 17:18 Dose: 500 mg Metoprolol Tartrate (Lopressor) 12.5 mg PO BIDWM [facility] Last Admin: 02/27/17 17:18 Dose: 12.5 mg Midodrine (Proamatine) 5 mg PO TID [facility] Last Admin: 02/27/17 15:00 Dose: 5 mg Oxycodone/Acetaminophen (Percocet 5/325) 1 tab PO HS [facility] Last Admin: 02/26/17 21:48 Dose: Not Given Polyethylene Glycol (Miralax) 17 gm PO PRN PRN PRN Reason: Constipation Potassium Chloride (K-Dur) 10 meq PO BIDWM [facility] Last Admin: 02/23/17 09:56 Dose: 10 meq Ranitidine HCl (Zantac) 75 mg PO BID [facility] Last Admin: 02/27/17 09:06 Dose: 75 mg Risperidone (Risperdal) 0.25 mg PO DAILY [facility] Last Admin: 02/27/17 09:08 Dose: 0.25 mg Risperidone (Risperdal) 1 mg PO DAILY@1700 [facility] Last Admin: 02/27/17 17:18 Dose: 1 mg Subjective: Pt seen and chart examined. Nursing reports pt is doing well on the unit. Sleeping well and has a good appetite. Some exit seeking behavior at times but is redirectable. On bjorn to face the pt is pleasant but confused. She is only oriented to self. Denies any pain. Tolerating meds Start Time: 16:45 Stop Time: 17:00 Mental Status Exam Vitals: Last Vital Signs Temp 97.4 F 02/27/17 16:00 Pulse 70 02/27/17 16:00 Resp 16 02/27/17 16:00 BP 126/74 02/27/17 16:00 Pulse Ox 100 02/27/17 16:00 Height: 1.6 m Weight: 55.77 kg - Mental Status Exam Muscle Strength/Tone: Normal Dressing: Casual Grooming: Good Attitude: Cooperative Motor Activity: Normal Eye Contact: Good Speech: Normal Volume: Soft Rhythm: Appropriate Rhythm, Perseveration Orientation: Disoriented to time, Disoriented to place, Oriented to person Mood: Other ("fine") Rate of Thoughts: Delayed Thought Organization: [place] Associations: Illogical Abstract Reasoning: Poor abstract reasoning Thought Content: Delusions Perception/Psychotic: Hx psychosis, 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 Language: Naming Impaired Memory: Poor-immediate Suicidal Ideation: None Homicidal Ideation: None Insight: Poor Judgement: Poor - Laboratory Result Diagrams: 02/24/17 04:41 02/24/17 04:41 Laboratory Results - last 24 hr 02/26/17 02/26/17 02/27/17 17:28 20:40 06:12 Glucometer 142 224 102 Assessment and Plan (1) UTI (urinary tract infection), bacterial Current visit: Yes Status: Acute (2) HTN (hypertension) Current visit: Yes Status: Chronic (3) CAD (coronary artery disease) Current visit: Yes Status: Chronic (4) DM2 (diabetes mellitus, type 2) Current visit: Yes Status: Chronic (5) Hypothyroid Current visit: Yes Status: Chronic (6) Atrial fibrillation Current visit: Yes Status: Chronic (7) Delirium Problem details: Due to UTI Current visit: Yes Status: Acute (8) Major neurocognitive disorder Problem details: with behavioral disturbance Current visit: Yes Status: Acute Hospital Course Summary Disclaimer: The visit summary below is not to be considered part of the above Progress Note. Hospital Course: 02/16/17 10:03 *Cognitive/Behavioral Changes- Per attending. Will stop Cipro, as this can worsen delirium in the elderly. Ok for unit activities. Recent anesthesia for PPM. *UTI- Significant pyuria on recent UA. Recheck UA now. Stop Cipro and reassess once urine is back. *HTN- Continue metoprolol, Bumex. She is on Midodrine- suspect some history of orthostasis. Monitor BP. *Peripheral edema- Given Bumex dosing, suspect HF. Try and get echo from [facility]. *Hypokalemia- Repeat labs now. May need to increase KCL dosing. *Leukopenia- She is on Femara. No hx of cancer is on record. Will need to clarify with family. *Anemia- normocytic. Assess B12, Folate. *DM2-Continue metformin. A1c is OK. Monitor accuchecks. *Hypothyroid- TSH high normal. We could potentially increase dose a bit. Monitor progress for now. *Atrial Fib- s/p PPM Rate control. No anticoagulation due to fall risk. *Full Code 02/17/17 09:41 Hypomagnesemia -improving; up to 1.5 -recheck in am -K stable at 3.9 UTI -r/o; UA neg. -Cipro dc'd DM2 -well controlled and normal A1c -Metformin dc'd -continue to monitor BG to assess trends since metformin was dc'd Suspect CHF -records being requested from [facility] -continue Bumex & metoprolol -EKG reviewed - paced rhythm -elevate legs when at rest ?Orthostasis -midodrine on hold -monitor orthostatics BID Psych -head CT shows moderate atrophy and chronic b/l cerebellar infarcts -observe for gait instability -RPR, lippid panel, T3, T4 pending -B12 523 02/20/17 18:24 Increase Risperdal to 0.5mg PO QHS 02/22/17 Hyponatremia- sodium yesterday was 133. We will recheck this tomorrow DM2 Continue to monitor blood sugars carefully. Sliding scale NovoLog as needed, and metformin 500 twice a day Hemoglobin A1c was found to be 6.6. CHF/orthostasis Continue Bumex & metoprolol. Blood pressure appears to be well controlled Continue on Midrine 3 times a day Psych per Dr Samson 02/22/17 11:13 Continue current care 02/23/17 10:59 Continue current care 02/25/17 13:56 02/25/17 Hyponatremia- resolved. Sodium on 02/24 was 134. We will recheck labs on 02/28. DM2 Continue to monitor blood sugars carefully. Controlled. Sliding scale NovoLog as needed, and metformin 500 twice a day Hemoglobin A1c was found to be 6.6. CHF/orthostasis Continue Bumex & metoprolol. Blood pressure appears to be well controlled Continue on Midrine 3 times a day. Psych Continue to provide safe and supportive environment. per psych team. Anticipate discharge in near future. Chest wall pain, chronic. Recommend follow up as out patient with PCP and assayer helper. Pacemaker site is clean, dry without swelling or erythema. N/V intact. Anemia, mild. Hgb 11.5 on 7/3. Follow as out patient and monitor closely for signs of bleeding. 02/26/17 20:27: Cont current treatment and discuss with the hospitalist about the causes of elevated BUN 02/27/17 17:38 Continue current care
[2017-02-27] MEDS: Oxycodone/Acetaminophen 5/325 1 TAB PO SCH (20:31)
[2017-02-28] MEDS: LEVOTHYROXINE 50 MCG TABLET PO SCH (05:57)
[2017-02-28] MEDS: ACETAMINOPHEN 325 MG TABLET PO PRN (06:00)
[2017-02-28] MEDS: METFORMIN 500 MG TABLET PO SCH ×2 (08:15→17:54)
[2017-02-28] MEDS: LETROZOLE 2.5 MG TABLET PO SCH (08:16)
[2017-02-28] MEDS: DOCUSATE SODIUM 100 MG CAPSULE PO SCH (08:16)
[2017-02-28] MEDS: ASPIRIN *EC* 81 MG TABLET PO SCH (08:16)
[2017-02-28] MEDS: RANITIDINE 150 MG TABLET PO SCH ×3 (08:16→22:07)
[2017-02-28] MEDS: CLOPIDOGREL 75 MG TABLET PO SCH (08:16)
[2017-02-28] MEDS: MIDODRINE 5 MG TABLET PO SCH ×4 (08:16→22:07)
--- NOTE | 2017-02-28 08:58 | Progress Note ---
Subjective: Nury was seen this morning while finishing breakfast. She is alert and pleasant. She denies having any pain including chest pain, abdominal pain or shortness of breath. Her appetite has been good, no difficulty with urination or bowel movements. Nursing staff reports no behaviors overnight. Noted to have some intermittent low blood pressures. This morning was reported 87/53. Objective Vital signs: Temperature 96.6 F L 02/28/17 08:00 Pulse Rate 70 02/28/17 08:00 Respiratory Rate 14 02/28/17 08:00 Blood Pressure 87/53 02/28/17 08:00 Pulse Oximetry 100 02/28/17 08:00 Oxygen Delivery Method Room Air Fraction of Inspired Oxygen 21 Weight: 59.6 kg - Constitutional Present: no acute distress - Routine HEENT Exam Head: Present: normocephalic, atraumatic Eye: Present: EOMI, PERRL ENT: Present: mucous membranes moist - Routine Respiratory Exam Present: CTA bilaterally - Routine Cardiovascular Exam Present: RRR, S1, S2 - Routine Abdominal Exam Present: soft, normoactive bowel sounds, non tender - Routine Extremities Exam Present: full ROM - Routine Back/Spine/Pelvis Exam Back/Spine: Present: full ROM - Routine Skin Exam Present: intact, dry, warm - Routine Neurological Exam Present: alert, CN II-XII intact, moving all extremities - Routine Psychiatric Exam Present: normal affect Results - Labs CBC & Chem 7: 02/28/17 04:45 02/28/17 04:45 Assessment and Plan (1) Cognitive and behavioral changes Current visit: Yes Status: Acute (2) UTI (urinary tract infection), bacterial Current visit: Yes Status: Acute (3) HTN (hypertension) Current visit: Yes Status: Chronic (4) CAD (coronary artery disease) Current visit: Yes Status: Chronic (5) Chronic edema Current visit: Yes Status: Chronic (6) Hypokalemia Current visit: Yes Status: Acute (7) DM2 (diabetes mellitus, type 2) Current visit: Yes Status: Chronic (8) Hypothyroid Current visit: Yes Status: Chronic (9) Atrial fibrillation Current visit: Yes Status: Chronic 02/16/17 09:54 s/p PPM December 2016- [facility]. Request records for Echo, Cardiac records (None at [facility]) (10) Leukopenia Current visit: Yes Status: Acute (11) Normocytic normochromic anemia Current visit: Yes Status: Chronic (12) IBS (irritable bowel syndrome) Current visit: Yes Status: Acute Assessment and Plan: 02/28/17 Hyponatremia- slightly decreased today to 133. Will continue to motnior We will recheck labs on 03/02 DM2 Continue to monitor blood sugars carefully. Gluecose appears to be well controlled Utilize sliding scale NovoLog as needed, and metformin 500 twice a day CHF/orthostasis BP reveled orthostatis this morning. Will Decrease Metoprolol to 6.25mg BID and continue to monitor Continue Bumex & Midodrine Psych Continue to provide safe and supportive environment. Sepsis Assessment - Evaluation Sepsis screening result: No Definite Risk Hospital Course Summary Disclaimer: The visit summary below is not to be considered part of the above Progress Note. Hospital Course: 02/16/17 10:03 *Cognitive/Behavioral Changes- Per attending. Will stop Cipro, as this can worsen delirium in the elderly. Ok for unit activities. Recent anesthesia for PPM. *UTI- Significant pyuria on recent UA. Recheck UA now. Stop Cipro and reassess once urine is back. *HTN- Continue metoprolol, Bumex. She is on Midodrine- suspect some history of orthostasis. Monitor BP. *Peripheral edema- Given Bumex dosing, suspect HF. Try and get echo from [facility]. *Hypokalemia- Repeat labs now. May need to increase KCL dosing. *Leukopenia- She is on Femara. No hx of cancer is on record. Will need to clarify with family. *Anemia- normocytic. Assess B12, Folate. *DM2-Continue metformin. A1c is OK. Monitor accuchecks. *Hypothyroid- TSH high normal. We could potentially increase dose a bit. Monitor progress for now. *Atrial Fib- s/p PPM Rate control. No anticoagulation due to fall risk. *Full Code 02/17/17 09:41 Hypomagnesemia -improving; up to 1.5 -recheck in am -K stable at 3.9 UTI -r/o; UA neg. -Cipro dc'd DM2 -well controlled and normal A1c -Metformin dc'd -continue to monitor BG to assess trends since metformin was dc'd Suspect CHF -records being requested from [facility] -continue Bumex & metoprolol -EKG reviewed - paced rhythm -elevate legs when at rest ?Orthostasis -midodrine on hold -monitor orthostatics BID Psych -head CT shows moderate atrophy and chronic b/l cerebellar infarcts -observe for gait instability -RPR, lippid panel, T3, T4 pending -B12 523 02/20/17 18:24 Increase Risperdal to 0.5mg PO QHS 02/22/17 Hyponatremia- sodium yesterday was 133. We will recheck this tomorrow DM2 Continue to monitor blood sugars carefully. Sliding scale NovoLog as needed, and metformin 500 twice a day Hemoglobin A1c was found to be 6.6. CHF/orthostasis Continue Bumex & metoprolol. Blood pressure appears to be well controlled Continue on Midrine 3 times a day Psych per Dr Samson 02/22/17 11:13 Continue current care 02/23/17 10:59 Continue current care 02/25/17 13:56 02/25/17 Hyponatremia- resolved. Sodium on 02/24 was 134. We will recheck labs on 02/28. DM2 Continue to monitor blood sugars carefully. Controlled. Sliding scale NovoLog as needed, and metformin 500 twice a day Hemoglobin A1c was found to be 6.6. CHF/orthostasis Continue Bumex & metoprolol. Blood pressure appears to be well controlled Continue on Midrine 3 times a day. Psych Continue to provide safe and supportive environment. per psych team. Anticipate discharge in near future. Chest wall pain, chronic. 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 Pacemaker site is clean, dry without swelling or erythema. N/V intact. Anemia, mild. Hgb 11.5 on 02/24. Follow as out patient and monitor closely for signs of bleeding. 02/26/17 20:27: Cont current treatment and discuss with the hospitalist about the causes of elevated BUN 02/28/17 Hyponatremia- slightly decreased today to 133. Will continue to motnior We will recheck labs on 03/02 DM2 Continue to monitor blood sugars carefully. Glucose appears to be well controlled Utilize sliding scale NovoLog as needed, and metformin 500 twice a day CHF/orthostasis BP reveled orthostatis this morning. Will Decrease Metoprolol to 6.25mg BID and continue to monitor Continue Bumex & Midodrine Psych Continue to provide safe and supportive environment. 02/28/17 09:06
--- NOTE | 2017-02-28 17:40 | Neuropsych Progress Note ---
[facility] Subjective Date: 02/28/17 - Sujective/Severity of Illness Medications: Acetaminophen (Tylenol) 325 - 650 mg PO Q5H PRN PRN Reason: Discomfort Last Admin: 02/28/17 06:00 Dose: 650 mg Al Hydroxide/Mg Hydroxide (Maalox Plus) 30 ml PO PRN PRN PRN Reason: Indigestion Last Admin: 02/25/17 16:15 Dose: 30 ml Aspirin (Ecotrin) 81 mg PO DAILY COUNTS INCLUDE 234 BEDS AT [facility] Last Admin: 02/28/17 08:16 Dose: 81 mg Bumetanide (Bumex) 2 mg PO DAILY COUNTS [facility]CLUDE 234 BEDS AT [facility] Last Admin: 02/23/17 09:57 Dose: Not Given Cholecalciferol (Vit. D-3) 1,000 unit PO DAILY [facility]S [facility]CLUDE 234 BEDS AT [facility] Last Admin: 02/28/17 08:16 Dose: 1,000 unit Clopidogrel Bisulfate (Plavix) 75 mg PO DAILY COUNTS INCLUDE 234 BEDS AT [facility] Last Admin: 02/28/17 08:16 Dose: 75 mg Docusate Sodium (Colace) 100 mg PO DAILY COUNTS INCLUDE 234 BEDS AT [facility] Last Admin: 02/28/17 08:16 Dose: 100 mg Haloperidol (Haldol) 0.5 mg PO Q6H PRN PRN Reason: Extreme agitation Last Admin: 02/23/17 18:00 Dose: 0.5 mg Haloperidol Decanoate (Haldol Liquid) 0.5 mg PO Q6H PRN Last Admin: 02/21/17 13:30 Dose: 0.5 mg Haloperidol Lactate (Haldol) 0.5 mg IM Q6H PRN PRN Reason: Extreme agitation Insulin Aspart (Novolog) 0 unit SQ SS PRN; Protocol PRN Reason: Hyperglycemia Last Admin: 02/27/17 17:28 Dose: 1 unit Letrozole (Femara) 2.5 mg PO DAILY COUNTS INCLUDE 234 BEDS AT [facility] Last Admin: 02/28/17 08:16 Dose: 2.5 mg Levothyroxine Sodium (Synthroid) 50 mcg PO ACB COUNTS INCLUDE 234 BEDS AT THE [facility] Last Admin: 02/28/17 05:57 Dose: 50 mcg Loperamide HCl (Imodium) 2 mg PO DAILY PRN PRN Reason: DIARRHEA, LOOSE STOOLS Lorazepam (Ativan Inj) 0.5 mg IM Q6H PRN PRN Reason: Extreme agitation Lorazepam (Ativan) 0.5 mg PO Q6H PRN PRN Reason: Extreme agitation Lorazepam (Ativan Intensol) 0.5 mg PO Q6H PRN Last Admin: 02/16/17 17:13 Dose: 0.5 mg Lubiprostone (Amitiza) 8 mcg PO PRN PRN PRN Reason: FOR IBS with CONSTIPATION Metformin HCl (Glucophage) 500 mg PO BIDWM COUNTS INCLUDE 234 BEDS AT THE [facility] Last Admin: 02/28/17 08:15 Dose: 500 mg Metoprolol Tartrate (Lopressor) 6.25 mg PO BIDWM COUNTS INCLUDE 234 BEDS AT THE [facility] Midodrine (Proamatine) 5 mg PO TID COUNTS INCLUDE 234 BEDS AT THE [facility] Last Admin: 02/28/17 14:34 Dose: 5 mg Oxycodone/Acetaminophen (Percocet 5/325) 1 tab PO HS COUNTS INCLUDE 234 BEDS AT [facility] Last Admin: 02/27/17 20:31 Dose: 1 tab Polyethylene Glycol (Miralax) 17 gm PO PRN PRN PRN Reason: Constipation Potassium Chloride (K-Dur) 10 meq PO BIDWM COUNTS INCLUDE 234 BEDS AT [facility] Last Admin: 02/23/17 09:56 Dose: 10 meq Ranitidine HCl (Zantac) 75 mg PO BID COUNTS INCLUDE 234 BEDS AT [facility] Last Admin: 02/28/17 08:16 Dose: 75 mg Risperidone (Risperdal) 0.25 mg PO DAILY COUNTS INCLUDE 234 BEDS AT [facility] Last Admin: 02/28/17 08:16 Dose: 0.25 mg Risperidone (Risperdal) 1 mg PO DAILY@1700 COUNTS INCLUDE 234 BEDS AT [facility] Last Admin: 02/27/17 17:18 Dose: 1 mg Subjective: Pt seen and chart examined. Nursing reports pt is doing well. Sleeping well and has a good appetite. No behaviors noted. On face to face the pt is pleasant but confused. She is only oriented to self. Tolerating meds. Voices no concerns at this time Start Time: 17:30 Stop Time: 18:00 Mental Status Exam Vitals: Last Vital Signs Temp 96.7 F L 02/28/17 16:00 Pulse 70 02/28/17 16:00 Resp 18 02/28/17 16:00 BP 121/65 02/28/17 16:00 Pulse Ox 100 02/28/17 16:00 Height: 1.6 m Weight: 59.6 kg - Mental Status Exam Muscle Strength/Tone: Normal Dressing: Casual Grooming: Good Attitude: Cooperative Motor Activity: Normal Eye Contact: Good Speech: Normal Volume: Soft Rhythm: Appropriate Rhythm, Perseveration Orientation: Disoriented to time, Disoriented to place, Oriented to person Mood: Other ("fine") Rate of Thoughts: Delayed Thought Organization: [place] Associations: Illogical Abstract Reasoning: Poor abstract reasoning Thought Content: Delusions Perception/Psychotic: Hx psychosis, not current Language: Naming Impaired Memory: Poor-immediate Suicidal Ideation: None Homicidal Ideation: None Insight: Poor Judgement: Poor - Laboratory Result Diagrams: 02/28/17 04:45 02/28/17 04:45 Laboratory Results - last 24 hr 02/27/17 02/28/17 02/28/17 19:51 04:45 04:45 WBC 7.7 RBC 3.41 L Hgb 10.6 L Hct 33.3 L MCV 97.7 MCH 31.1 MCHC 31.8 RDW Std Deviation 47.0 Plt Count 263 MPV 10.3 Immature Gran % (Auto) 0.1 Neut % (Auto) 60.3 Lymph % (Auto) 32.1 [place] % (Auto) 5.3 Eos % (Auto) 1.7 Baso % (Auto) 0.5 Neut # 4.6 Lymph # 2.5 [place] # 0.4 Eos # 0.1 Baso # 0.0 Abs Immat Gran (auto) 0.01 Turbidity < 20 Sodium 133 L Potassium 4.1 Chloride 104 Carbon Dioxide 22 Anion Gap 7 BUN 33.0 H Creatinine 0.9 GFR Calculation 60 BUN/Creatinine Ratio 37 H Glucose 98 Glucometer 152 Calculated Osmolality 263 Calcium 9.1 Icterus Index < 2 Specimen Hemolysis < 15 02/28/17 12:08 WBC RBC Hgb Hct MCV MCH MCHC RDW Std Deviation Plt Count MPV Immature Gran % (Auto) Neut % (Auto) Lymph % (Auto) [place] % (Auto) Eos % (Auto) Baso % (Auto) Neut # Lymph # [place] # Eos # Baso # Abs Immat Gran (auto) Turbidity Sodium Potassium Chloride Carbon Dioxide Anion Gap BUN Creatinine GFR Calculation BUN/Creatinine Ratio Glucose Glucometer 153 Calculated Osmolality Calcium Icterus Index Specimen Hemolysis Assessment and Plan (1) UTI (urinary tract infection), bacterial Current visit: Yes Status: Acute (2) HTN (hypertension) Current visit: Yes Status: Chronic (3) CAD (coronary artery disease) Current visit: Yes Status: Chronic (4) DM2 (diabetes mellitus, type 2) Current visit: Yes Status: Chronic (5) Hypothyroid Current visit: Yes Status: Chronic (6) Atrial fibrillation Current visit: Yes Status: Chronic (7) Delirium Problem details: Due to UTI Current visit: Yes Status: Acute (8) Major neurocognitive disorder Problem details: with behavioral disturbance Current visit: Yes Status: Acute Hospital Course Summary Disclaimer: The visit summary below is not to be considered part of the above Progress Note. Hospital Course: 02/16/17 10:03 *Cognitive/Behavioral Changes- Per attending. Will stop Cipro, as this can worsen delirium in the elderly. Ok for unit activities. Recent anesthesia for PPM. *UTI- Significant pyuria on recent UA. Recheck UA now. Stop Cipro and reassess once urine is back. *HTN- Continue metoprolol, Bumex. She is on Midodrine- suspect some history of orthostasis. Monitor BP. *Peripheral edema- Given Bumex dosing, suspect HF. Try and get echo from [facility]. *Hypokalemia- Repeat labs now. May need to increase KCL dosing. *Leukopenia- She is on Femara. No hx of cancer is on record. Will need to clarify with family. *Anemia- normocytic. Assess B12, Folate. *DM2-Continue metformin. A1c is OK. Monitor accuchecks. *Hypothyroid- TSH high normal. We could potentially increase dose a bit. Monitor progress for now. *Atrial Fib- s/p PPM Rate control. No anticoagulation due to fall risk. *Full Code 02/17/17 09:41 Hypomagnesemia -improving; up to 1.5 -recheck in am -K stable at 3.9 UTI -r/o; UA neg. -Cipro dc'd DM2 -well controlled and normal A1c -Metformin dc'd -continue to monitor BG to assess trends since metformin was dc'd Suspect CHF -records being requested from [facility] -continue Bumex & metoprolol -EKG reviewed - paced rhythm -elevate legs when at rest ?Orthostasis -midodrine on hold -monitor orthostatics BID Psych -head CT shows moderate atrophy and chronic b/l cerebellar infarcts -observe for gait instability -RPR, lippid panel, T3, T4 pending -B12 523 02/20/17 18:24 Increase Risperdal to 0.5mg PO QHS 02/22/17 Hyponatremia- sodium yesterday was 133. We will recheck this tomorrow DM2 Continue to monitor blood sugars carefully. Sliding scale NovoLog as needed, and metformin 500 twice a day Hemoglobin A1c was found to be 6.6. CHF/orthostasis Continue Bumex & metoprolol. Blood pressure appears to be well controlled Continue on Midrine 3 times a day Psych per Dr Samson 02/22/17 11:13 Continue current care 02/23/17 10:59 Continue current care 02/25/17 13:56 02/25/17 Hyponatremia- resolved. Sodium on 02/24 was 134. We will recheck labs on 02/28. DM2 Continue to monitor blood sugars carefully. Controlled. Sliding scale NovoLog as needed, and metformin 500 twice a day Hemoglobin A1c was found to be 6.6. CHF/orthostasis Continue Bumex & metoprolol. Blood pressure appears to be well controlled Continue on Midrine 3 times a day. Psych Continue to provide safe and supportive environment. per psych team. Anticipate discharge in near future. Chest wall pain, chronic. 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 Pacemaker site is clean, dry without swelling or erythema. N/V intact. Anemia, mild. Hgb 11.5 on 02/24. Follow as out patient and monitor closely for signs of bleeding. 02/26/17 20:27: Cont current treatment and discuss with the hospitalist about the causes of elevated BUN 02/28/17 Hyponatremia- slightly decreased today to 133. Will continue to motnior We will recheck labs on 03/02 DM2 Continue to monitor blood sugars carefully. Glucose appears to be well controlled Utilize sliding scale NovoLog as needed, and metformin 500 twice a day CHF/orthostasis BP reveled orthostatis this morning. Will Decrease Metoprolol to 6.25mg BID and continue to monitor Continue Bumex & Midodrine Psych Continue to provide safe and supportive environment. 02/28/17 09:06 02/28/17 17:39 Will recheck UA. D/C tomorrow
--- NOTE | 2017-02-28 17:44 | Discharge Instructions ---
Discharge Plan - Med Rec/Dispo Referrals/Follow Up: Camden Burris MD [Other] (Dr. Camden Burris on 03/12/17 at 2:30 pm for Hosp. follow-up. . [facility] [address] [place] [address]) Ines العراقيMaurice [Other] (MARY KAY Deshpande on 03/03/17 at 9:30 am for Mental Health follow-up. Please bring your I.D., Social Security Card, and Insurance cards with you to the appt.) Additional Instructions: Reasons for Admission: Discharge Diagnosis: IN CASE OF PSYCHIATRIC EMERGENCY, CONTACT GENERATIONS STAFF AT [phone] ( available 24 hrs daily). Prescriptions: New LORazepam [Ativan] 0.5 mg PO Q6H PRN #60 tablet PRN Reason: Extreme Agitation RisperiDONE [RisperDAL] 1 mg PO DAILY@1700 #30 tablet RisperiDONE [RisperDAL] 0.25 mg PO DAILY #30 tablet No Action Clopidogrel Bisulfate [Clopidogrel] 75 mg PO DAILY Letrozole 2.5 mg PO DAILY Midodrine [Proamatine] 5 mg PO TID Potassium Chloride [Klor-Con 10] 10 meq PO BID Oxycodone/APAP 5/325 [Percocet 5/325] 1 tab PO HS Levothyroxine Sodium 50 mcg PO DAILY raNITIdine HCl [Ranitidine HCl] 75 mg PO BID Bumetanide 2 mg PO DAILY Loperamide HCl [Loperamide] 2 mg PO DAILY PRN PRN Reason: Unspecified Mag-Al + Sim Oral Liq [Maalox Plus] 30 ml PO PRN PRN PRN Reason: Indigestion Polyethylene Glycol 3350 [Miralax] 17 gm PO PRN PRN PRN Reason: Constipation Ciprofloxacin HCl [Cipro] 500 mg PO 10,20 Aspirin *EC* [Ecotrin] 1 tab PO DAILY Cholecalciferol [Vit. D-3] 1 tab PO DAILY Magnesium Oxide [Magnesium] 400 mg PO BID Metformin [Glucophage] 500 mg PO BIDWM Metoprolol Tartrate [Lopressor] 25 mg PO BIDWM Lubiprostone [Amitiza] 8 mcg PO PRN PRN PRN Reason: Unspecified Discharge Instructions/Outpatient Orders: Final Provider Discharge Instructions Location: Determined By Patient - Disposition 01 Discharged Home, Self-Care
[2017-02-28] MEDS: RisperiDONE 1 MG TABLET PO SCH (17:54)
[2017-02-28] MEDS: Oxycodone/Acetaminophen 5/325 1 TAB PO SCH (19:45)
[2017-02-28] MEDS: INSULIN ASPART 100unit/ml INJECTION SQ PRN (20:17)
[2017-03-01] MEDS: Oxycodone/Acetaminophen 5/325 1 TAB PO SCH (01:38)
[2017-03-01] MEDS: LEVOTHYROXINE 50 MCG TABLET PO SCH (06:49)
[2017-03-01 07:44] VITALS: BP 126/65; PULSE 70; RESP 16; TEMP 96.7; O2SAT 100
[2017-03-01] MEDS: CLOPIDOGREL 75 MG TABLET PO SCH (08:14)
[2017-03-01] MEDS: ASPIRIN *EC* 81 MG TABLET PO SCH (08:14)
[2017-03-01] MEDS: METFORMIN 500 MG TABLET PO SCH (08:14)
[2017-03-01] MEDS: RANITIDINE 150 MG TABLET PO SCH (08:15)
[2017-03-01] MEDS: MIDODRINE 5 MG TABLET PO SCH (08:15)
[2017-03-01] MEDS: LETROZOLE 2.5 MG TABLET PO SCH (08:15)
[2017-03-01] MEDS: DOCUSATE SODIUM 100 MG CAPSULE PO SCH (08:16)
--- NOTE | 2017-03-01 09:57 | Discharge Instructions ---
Discharge Plan - Med Rec/Dispo Referrals/Follow Up: Camden Burris MD [Other] (Dr. Camden Burris on 03/12/17 at 2:30 pm for Hosp. follow-up. . [facility] [address] [place] [address]) Ines العراقيW [Other] (MARY KAY Deshpande on 03/03/17 at 9:30 am for Mental Health follow-up. Please bring your I.D., Social Security Card, and Insurance cards with you to the appt.) Additional Instructions: Reasons for Admission: Discharge Diagnosis: IN CASE OF PSYCHIATRIC EMERGENCY, CONTACT GENERATIONS STAFF AT [phone] ( available 24 hrs daily). Prescriptions: New LORazepam [Ativan] 0.5 mg PO Q6H PRN #60 tablet PRN Reason: Extreme Agitation RisperiDONE [RisperDAL] 1 mg PO DAILY@1700 #30 tablet Acetaminophen [Tylenol] 325 - 650 mg PO Q5H PRN tablet PRN Reason: Discomfort Bumetanide Tab [Bumex] 2 mg PO DAILY tablet Docusate Sodium [Colace] 100 mg PO DAILY capsule Metoprolol Tartrate [Lopressor] 6.25 mg PO BIDWM tablet RisperiDONE [RisperDAL] 0.25 mg PO DAILY #30 tablet Levothyroxine Sodium [Synthroid] 50 mcg PO ACB tablet Oxycodone/APAP 5/325 [Percocet 5/325] 1 tab PO HS #15 tablet Continue Clopidogrel Bisulfate [Clopidogrel] 75 mg PO DAILY Letrozole 2.5 mg PO DAILY Midodrine [Proamatine] 5 mg PO TID Potassium Chloride [Klor-Con 10] 10 meq PO BID Levothyroxine Sodium 50 mcg PO DAILY raNITIdine HCl [Ranitidine HCl] 75 mg PO BID Loperamide HCl [Loperamide] 2 mg PO DAILY PRN PRN Reason: Unspecified Mag-Al + Sim Oral Liq [Maalox Plus] 30 ml PO PRN PRN PRN Reason: Indigestion Polyethylene Glycol 3350 [Miralax] 17 gm PO PRN PRN PRN Reason: Constipation Aspirin *EC* [Ecotrin] 1 tab PO DAILY Cholecalciferol [Vit. D-3] 1 tab PO DAILY Magnesium Oxide [Magnesium] 400 mg PO BID Metformin [Glucophage] 500 mg PO BIDWM Lubiprostone [Amitiza] 8 mcg PO PRN PRN PRN Reason: Unspecified Discontinued Ciprofloxacin HCl [Cipro] 500 mg PO 10,20 Metoprolol Tartrate [Lopressor] 25 mg PO BIDWM No Action Bumetanide 2 mg PO DAILY Discharge Instructions/Outpatient Orders: Final Provider Discharge Instructions Location: Determined By Patient - Disposition 01 Discharged Home, Self-Care
--- NOTE | 2017-03-01 11:09 | Neuropsych Progress Note ---
[facility] Subjective Date: 03/01/17 - Sujective/Severity of Illness Medications: Acetaminophen (Tylenol) 325 - 650 mg PO Q5H PRN PRN Reason: Discomfort Last Admin: 02/28/17 06:00 Dose: 650 mg Al Hydroxide/Mg Hydroxide (Maalox Plus) 30 ml PO PRN PRN PRN Reason: Indigestion Last Admin: 02/25/17 16:15 Dose: 30 ml Aspirin (Ecotrin) 81 mg PO DAILY [facility] Last Admin: 03/01/17 08:14 Dose: 81 mg Bumetanide (Bumex) 2 mg PO DAILY [facility] Last Admin: 02/23/17 09:57 Dose: Not Given Cholecalciferol (Vit. D-3) 1,000 unit PO DAILY [facility] Last Admin: 03/01/17 08:16 Dose: 1,000 unit Clopidogrel Bisulfate (Plavix) 75 mg PO DAILY [facility] Last Admin: 03/01/17 08:14 Dose: 75 mg Docusate Sodium (Colace) 100 mg PO DAILY [facility] Last Admin: 03/01/17 08:16 Dose: 100 mg Haloperidol (Haldol) 0.5 mg PO Q6H PRN PRN Reason: Extreme agitation Last Admin: 02/23/17 18:00 Dose: 0.5 mg Haloperidol Decanoate (Haldol Liquid) 0.5 mg PO Q6H PRN Last Admin: 02/21/17 13:30 Dose: 0.5 mg Haloperidol Lactate (Haldol) 0.5 mg IM Q6H PRN PRN Reason: Extreme agitation Insulin Aspart (Novolog) 0 unit SQ SS PRN; Protocol PRN Reason: Hyperglycemia Last Admin: 02/28/17 20:17 Dose: 2 unit Letrozole (Femara) 2.5 mg PO DAILY [facility] Last Admin: 03/01/17 08:15 Dose: 2.5 mg Levothyroxine Sodium (Synthroid) 50 mcg PO ACB [facility] Last Admin: 03/01/17 06:49 Dose: 50 mcg Loperamide HCl (Imodium) 2 mg PO DAILY PRN PRN Reason: DIARRHEA, LOOSE STOOLS Lorazepam (Ativan Inj) 0.5 mg IM Q6H PRN PRN Reason: Extreme agitation Lorazepam (Ativan) 0.5 mg PO Q6H PRN PRN Reason: Extreme agitation Lorazepam (Ativan Intensol) 0.5 mg PO Q6H PRN Last Admin: 02/16/17 17:13 Dose: 0.5 mg Lubiprostone (Amitiza) 8 mcg PO PRN PRN PRN Reason: FOR IBS with CONSTIPATION Metformin HCl (Glucophage) 500 mg PO BIDWM [facility] Last Admin: 03/01/17 08:14 Dose: 500 mg Metoprolol Tartrate (Lopressor) 6.25 mg PO BIDWM [facility] Midodrine (Proamatine) 5 mg PO TID [facility] Last Admin: 03/01/17 08:15 Dose: 5 mg Oxycodone/Acetaminophen (Percocet 5/325) 1 tab PO HS [facility] Last Admin: 03/01/17 01:38 Dose: Not Given Polyethylene Glycol (Miralax) 17 gm PO PRN PRN PRN Reason: Constipation Potassium Chloride (K-Dur) 10 meq PO BIDWM [facility] Last Admin: 02/23/17 09:56 Dose: 10 meq Ranitidine HCl (Zantac) 75 mg PO BID [facility] Last Admin: 03/01/17 08:15 Dose: 75 mg Risperidone (Risperdal) 0.25 mg PO DAILY [facility] Last Admin: 03/01/17 08:14 Dose: 0.25 mg Risperidone (Risperdal) 1 mg PO DAILY@1700 [facility] Last Admin: 02/28/17 17:54 Dose: 1 mg Subjective: Pt seen and chart examined. Nursing reports pt is doing well. Sleeping well and has a good appetite. No behaviors noted. On face to face the pt states she is doing well and voices no concerns. Tolerating meds Start Time: 10:30 Stop Time: 10:45 Mental Status Exam Vitals: Last Vital Signs Temp 96.7 F L 03/01/17 07:43 Pulse 70 03/01/17 07:43 Resp 16 03/01/17 07:43 BP 126/65 03/01/17 07:43 Pulse Ox 100 03/01/17 07:43 Height: 1.6 m Weight: 59.6 kg - Mental Status Exam Muscle Strength/Tone: Normal Dressing: Casual Grooming: Good Attitude: Cooperative Motor Activity: Normal Eye Contact: Good Speech: Normal Volume: Soft Rhythm: Appropriate Rhythm, Perseveration Orientation: Disoriented to time, Disoriented to place, Oriented to person Mood: Other ("fine") Rate of Thoughts: Delayed Thought Organization: [place] Associations: Illogical Abstract Reasoning: Poor abstract reasoning Thought Content: Delusions Perception/Psychotic: Hx psychosis, 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 Language: Naming Impaired Memory: Poor-immediate Suicidal Ideation: None Homicidal Ideation: None Insight: Poor Judgement: Poor - Laboratory Result Diagrams: 02/28/17 04:45 02/28/17 04:45 Laboratory Results - last 24 hr 02/28/17 02/28/17 03/01/17 12:08 20:09 05:34 Glucometer 153 204 Ur Collection Type Urine, clean catch Urine Color Yellow Urine Clarity Cloudy Urine pH 5.5 Ur Specific [place] 1.015 Urine Protein Negative Urine Glucose (UA) Negative Urine Ketones Negative Urine Occult Blood 1+ A Urine Nitrate Negative Urine Bilirubin Negative Urine Urobilinogen 0.2 Ur Leukocyte Esterase 3+ Urine RBC None seen Urine WBC 50-200 H Ur Squamous Epith Cells 0-5 Urine Bacteria Trace H Ur Culture Indicated? Cult not indicated 03/01/17 06:45 Glucometer 101 Ur Collection Type Urine Color Urine Clarity Urine pH Ur Specific [place] Urine Protein Urine Glucose (UA) Urine Ketones Urine Occult Blood Urine Nitrate Urine Bilirubin Urine Urobilinogen Ur Leukocyte Esterase Urine RBC Urine WBC Ur Squamous Epith Cells Urine Bacteria Ur Culture Indicated? Assessment and Plan (1) UTI (urinary tract infection), bacterial Current visit: Yes Status: Acute (2) HTN (hypertension) Current visit: Yes Status: Chronic (3) CAD (coronary artery disease) Current visit: Yes Status: Chronic (4) DM2 (diabetes mellitus, type 2) Current visit: Yes Status: Chronic (5) Hypothyroid Current visit: Yes Status: Chronic (6) Atrial fibrillation Current visit: Yes Status: Chronic (7) Delirium Problem details: Due to UTI Current visit: Yes Status: Acute (8) Major neurocognitive disorder Problem details: with behavioral disturbance Current visit: Yes Status: Acute Hospital Course Summary Disclaimer: The visit summary below is not to be considered part of the above Progress Note. Hospital Course: 02/16/17 10:03 *Cognitive/Behavioral Changes- Per attending. Will stop Cipro, as this can worsen delirium in the elderly. Ok for unit activities. Recent anesthesia for PPM. *UTI- Significant pyuria on recent UA. Recheck UA now. Stop Cipro and reassess once urine is back. *HTN- Continue metoprolol, Bumex. She is on Midodrine- suspect some history of orthostasis. Monitor BP. *Peripheral edema- Given Bumex dosing, suspect HF. Try and get echo from [facility]. *Hypokalemia- Repeat labs now. May need to increase KCL dosing. *Leukopenia- She is on Femara. No hx of cancer is on record. Will need to clarify with family. *Anemia- normocytic. Assess B12, Folate. *DM2-Continue metformin. A1c is OK. Monitor accuchecks. *Hypothyroid- TSH high normal. We could potentially increase dose a bit. Monitor progress for now. *Atrial Fib- s/p PPM Rate control. No anticoagulation due to fall risk. *Full Code 02/17/17 09:41 Hypomagnesemia -improving; up to 1.5 -recheck in am -K stable at 3.9 UTI -r/o; UA neg. -Cipro dc'd DM2 -well controlled and normal A1c -Metformin dc'd -continue to monitor BG to assess trends since metformin was dc'd Suspect CHF -records being requested from [facility] -continue Bumex & metoprolol -EKG reviewed - paced rhythm -elevate legs when at rest ?Orthostasis -midodrine on hold -monitor orthostatics BID Psych -head CT shows moderate atrophy and chronic b/l cerebellar infarcts -observe for gait instability -RPR, lippid panel, T3, T4 pending -B12 523 02/20/17 18:24 Increase Risperdal to 0.5mg PO QHS 02/22/17 Hyponatremia- sodium yesterday was 133. We will recheck this tomorrow DM2 Continue to monitor blood sugars carefully. Sliding scale NovoLog as needed, and metformin 500 twice a day Hemoglobin A1c was found to be 6.6. CHF/orthostasis Continue Bumex & metoprolol. Blood pressure appears to be well controlled Continue on Midrine 3 times a day Psych per Dr Samson 02/22/17 11:13 Continue current care 02/23/17 10:59 Continue current care 02/25/17 13:56 02/25/17 Hyponatremia- resolved. Sodium on 02/24 was 134. We will recheck labs on 02/28. DM2 Continue to monitor blood sugars carefully. Controlled. Sliding scale NovoLog as needed, and metformin 500 twice a day Hemoglobin A1c was found to be 6.6. CHF/orthostasis Continue Bumex & metoprolol. Blood pressure appears to be well controlled Continue on Midrine 3 times a day. Psych Continue to provide safe and supportive environment. per psych team. Anticipate discharge in near future. Chest wall pain, chronic. Recommend follow up as out patient with PCP and clinical data associate. Pacemaker site is clean, dry without swelling or erythema. N/V intact. Anemia, mild. Hgb 11.5 on 02/24. Follow as out patient and monitor closely for signs of bleeding. 02/26/17 20:27: Cont current treatment and discuss with the hospitalist about the causes of elevated BUN 02/28/17 Hyponatremia- slightly decreased today to 133. Will continue to motnior We will recheck labs on 03/02 DM2 Continue to monitor blood sugars carefully. Glucose appears to be well controlled Utilize sliding scale NovoLog as needed, and metformin 500 twice a day CHF/orthostasis BP reveled orthostatis this morning. Will Decrease Metoprolol to 6.25mg BID and continue to monitor Continue Bumex & Midodrine Psych Continue to provide safe and supportive environment. 02/28/17 09:06 02/28/17 17:39 Will recheck UA. D/C tomorrow 03/01/17 11:09 D/C home today
--- NOTE | 2017-04-12 14:15 | Neuropsychiatric Disch Summary ---
Discharge Information Date of admission: 02/15/17 23:25 Attending Physician: Carl Howard MD Primary care physician: Kirit Burris MD Consults: 02/16/17 08:00 Case Management Consult [CONS] Routine Reason For Exam: Mental status change; new admit 02/16/17 08:38 Physician Consult [CONS] Routine Consulting Provider: Rachel Milan Reason For Exam: Mental status change; new admit Ordering Provider has Notified Senior Marketing Coordinator: No - Discharge Diagnosis Discharge Diagnosis: Major Neurocognitive Disorder with Behavioral Disturbance - Laboratory Labs: 02/28/17 04:45 02/28/17 04:45 Date of Admission: 02/15/17 23:25 History of Present Illness: 81 y/o CF sent from [place] for increasing confusion and self care failure. Pt reportedly has a hx of dementia and recently had a UTI. THis was treated but her confusion persisted. Recently she has been refusing meds at home and has been wandering away from the home. Due to these issues her daughter did not feel she could keep her safe. At the hospital in [place] the staff reported the pt was confused and paranoid at times. On face to face the pt is pleasant but confused. She knows she is in the hospital but is not sure why. SHe is only oriented to self and believes she is in [place] and it is September. She denies any pain and voices no concerns at this time. Hospital Course This is a general summary of the patient's hospital course. For more details refer to the complete medical record. Hospital course: 02/16/17 10:03 *Cognitive/Behavioral Changes- Per attending. Will stop Cipro, as this can worsen delirium in the elderly. Ok for unit activities. Recent anesthesia for PPM. *UTI- Significant pyuria on recent UA. Recheck UA now. Stop Cipro and reassess once urine is back. *HTN- Continue metoprolol, Bumex. She is on Midodrine- suspect some history of orthostasis. Monitor BP. *Peripheral edema- Given Bumex dosing, suspect HF. Try and get echo from [facility]. *Hypokalemia- Repeat labs now. May need to increase KCL dosing. *Leukopenia- She is on Femara. No hx of cancer is on record. Will need to clarify with family. *Anemia- normocytic. Assess B12, Folate. *DM2-Continue metformin. A1c is OK. Monitor accuchecks. *Hypothyroid- TSH high normal. We could potentially increase dose a bit. Monitor progress for now. *Atrial Fib- s/p PPM Rate control. No anticoagulation due to fall risk. *Full Code 02/17/17 09:41 Hypomagnesemia -improving; up to 1.5 -recheck in am -K stable at 3.9 UTI -r/o; UA neg. -Cipro dc'd DM2 -well controlled and normal A1c -Metformin dc'd -continue to monitor BG to assess trends since metformin was dc'd Suspect CHF -records being requested from [facility] -continue Bumex & metoprolol -EKG reviewed - paced rhythm -elevate legs when at rest ?Orthostasis -midodrine on hold -monitor orthostatics BID Psych -head CT shows moderate atrophy and chronic b/l cerebellar infarcts -observe for gait instability -RPR, lippid panel, T3, T4 pending -B12 523 02/20/17 18:24 Increase Risperdal to 0.5mg PO QHS 02/22/17 Hyponatremia- sodium yesterday was 133. We will recheck this tomorrow DM2 Continue to monitor blood sugars carefully. Sliding scale NovoLog as needed, and metformin 500 twice a day Hemoglobin A1c was found to be 6.6. CHF/orthostasis Continue Bumex & metoprolol. Blood pressure appears to be well controlled Continue on Midrine 3 times a day Psych per Dr Samson 02/22/17 11:13 Continue current care 02/23/17 10:59 Continue current care 02/25/17 13:56 02/25/17 Hyponatremia- resolved. Sodium on 02/24 was 134. We will recheck labs on 02/28. DM2 Continue to monitor blood sugars carefully. Controlled. Sliding scale NovoLog as needed, and metformin 500 twice a day Hemoglobin A1c was found to be 6.6. CHF/orthostasis Continue Bumex & metoprolol. Blood pressure appears to be well controlled Continue on Midrine 3 times a day. Psych Continue to provide safe and supportive environment. per psych team. Anticipate discharge in near future. Chest wall pain, chronic. Recommend follow up as out patient with PCP and director of clinical applications. Pacemaker site is clean, dry without swelling or erythema. N/V intact. Anemia, mild. Hgb 11.5 on 02/24. Follow as out patient and monitor closely for signs of bleeding. 02/26/17 20:27: Cont current treatment and discuss with the hospitalist about the causes of elevated BUN 02/28/17 Hyponatremia- slightly decreased today to 133. Will continue to motnior We will recheck labs on 03/02 DM2 Continue to monitor blood sugars carefully. Glucose appears to be well controlled Utilize sliding scale NovoLog as needed, and metformin 500 twice a day CHF/orthostasis BP reveled orthostatis this morning. Will Decrease Metoprolol to 6.25mg BID and continue to monitor Continue Bumex & Midodrine Psych Continue to provide safe and supportive environment. 02/28/17 09:06 02/28/17 17:39 Will recheck UA. D/C tomorrow 03/01/17 11:09 D/C home today Time spent with patient: 25 - 35 minutes Discharge Plan - Med Rec/Dispo Referrals/Follow Up: Camden Burris MD [Other] (Dr. Camden Burris on 03/12/17 at 2:30 pm for Hosp. follow-up. . [facility] [place] [address]) Ines العراقيMaurice [Other] (MARY KAY Deshpande on 03/03/17 at 9:30 am for Mental Health follow-up. Please bring your I.D., Social Security Card, and Insurance cards with you to the appt.) [place]ignon Instructions: Cognitive Behavioral Therapy (GEN) Additional Instructions: Reasons for Admission: Discharge Diagnosis: IN CASE OF PSYCHIATRIC EMERGENCY, CONTACT GENERATIONS STAFF AT [phone] ( available 24 hrs daily). Prescriptions: New LORazepam [Ativan] 0.5 mg PO Q6H PRN #60 tablet PRN Reason: Extreme Agitation RisperiDONE [RisperDAL] 1 mg PO DAILY@1700 #30 tablet Acetaminophen [Tylenol] 325 - 650 mg PO Q5H PRN tablet PRN Reason: Discomfort Bumetanide Tab [Bumex] 2 mg PO DAILY tablet Docusate Sodium [Colace] 100 mg PO DAILY capsule Metoprolol Tartrate [Lopressor] 6.25 mg PO BIDWM tablet RisperiDONE [RisperDAL] 0.25 mg PO DAILY #30 tablet Levothyroxine Sodium [Synthroid] 50 mcg PO ACB tablet Oxycodone/APAP 5/325 [Percocet 5/325] 1 tab PO HS #15 tablet Continue Clopidogrel Bisulfate [Clopidogrel] 75 mg PO DAILY Letrozole 2.5 mg PO DAILY Midodrine [Proamatine] 5 mg PO TID Potassium Chloride [Klor-Con 10] 10 meq PO BID Levothyroxine Sodium 50 mcg PO DAILY raNITIdine HCl [Ranitidine HCl] 75 mg PO BID Loperamide HCl [Loperamide] 2 mg PO DAILY PRN PRN Reason: Unspecified Mag-Al + Sim Oral Liq [Maalox Plus] 30 ml PO PRN PRN PRN Reason: Indigestion Polyethylene Glycol 3350 [Miralax] 17 gm PO PRN PRN PRN Reason: Constipation Aspirin *EC* [Ecotrin] 1 tab PO DAILY Cholecalciferol [Vit. D-3] 1 tab PO DAILY Magnesium Oxide [Magnesium] 400 mg PO BID Metformin [Glucophage] 500 mg PO BIDWM Lubiprostone [Amitiza] 8 mcg PO PRN PRN PRN Reason: Unspecified Discontinued Ciprofloxacin HCl [Cipro] 500 mg PO 10,20 Metoprolol Tartrate [Lopressor] 25 mg PO BIDWM No Action Bumetanide 2 mg PO DAILY Discharge Instructions/Outpatient Orders: Final Provider Discharge Instructions Location: Determined By Patient - Disposition 01 Discharged Home, Self-Care
== END 2017-03-01 10:07 | disposition home or self-care (01) | DRG 884 ==
LOC: EDSEX 23:25 → GEN 23:25
PROVIDERS: ADMIT Psychiatry & Neurology Psychiatry; ATTEND Psychiatry & Neurology Psychiatry